=== PATIENT | male | born 1950 | race Caucasian/White ===

== ENCOUNTER → 2024-12-31 12:34 | Outpatient (REF) | payer MEDICARE, OTHER, SELFPAY | LOC: RAD 12:34 | PROVIDERS: ATTENDING PHYSICIAN Family Medicine | DX: R60.0 Localized edema (principal) | CPT/HCPCS: 93922; 93925 ==

== ENCOUNTER 2025-01-21 17:57 | Inpatient (IN) | payer MEDICARE, OTHER, SELFPAY ==
[2025-01-21] VITALS (31 sets, daily range): BP systolic 100–148; BP diastolic 53–89; BMI 26.3
--- NOTE | 2025-01-21 09:24 | W.SUR.PREOP ---
Pre-Operative Surgical Note
-
I have examined this patient prior to the performance of the scheduled procedure.
The patient's condition is unchanged from the time of the current History and
Physical and the patient is able to undergo the scheduled procedure.
[2025-01-21 09:54] LABS: Glucose - Point of Care 116 mg/dl (70-99)
[2025-01-21 10:07] LABS: Hematocrit 28.9 % (39.0-52.0); Hemoglobin 9.2 g/dL (13.0-18.0); Mean Corp Hgb Conc. 31.8 g/dL (33.0-37.0); Mean Corpuscular Volume 98.0 fL (80.0-94.0); Red Cell Dist. Width 14.7 % (11.5-14.5)
[2025-01-21 10:16] LABS: INR 1.12; PT 14.5 Sec (11.4-14.6)
[2025-01-21 10:17] LABS: APTT 24.5 Sec (23.4-35.0)
[2025-01-21 10:19] LABS: Blood Urea Nitrogen 25 mg/dl (9-20); Calcium 8.7 mg/dl (8.4-10.2); Carbon Dioxide 25 mmol/L (22-30); Chloride 103 mmol/L (98-107); Estimated Creatinine Clearance 49 ml/min; Glucose 116 mg/dl (70-99); Potassium 4.7 mmol/L (3.5-5.1); Sodium 135 mmol/L (135-145); eGFR > 60.00
[2025-01-21 10:42] LABS: Platelet Count 144 10^3/uL (130-400)
[2025-01-21 12:56] LABS: ACT-LR - POC 282 Seconds (116-155)
--- NOTE | 2025-01-21 14:06 | OR.RPT ---
Operative Report
Operative Report
Date of Operation: 01/21/2025
Pre Op Diagnosis:
1. Limb threatening ischemia, right lower extremity
2. [place] artery atherosclerosis with nonhealing toe ulcerations on the hallux and 2nd toe
3. Diabetes with peripheral arterial occlusive disease
4. Hammer toe, 2nd digit right foot
Post Op Diagnosis:
1. Limb threatening ischemia, right lower extremity
2. [place] artery atherosclerosis with nonhealing toe ulcerations
3. Diabetes with peripheral arterial occlusive disease
4. Hammer toe, 2nd digit right foot
Procedure:
1. Intravascular lithotripsy to right posterior tibial artery (2.5 mm x 80 mm E8)
2. Balloon angioplasty to right posterior tibial artery (3 mm x 220 mm)
3. Balloon angioplasty to right dorsalis pedis artery (1.5 mm and 2 mm angioplasty balloons)
4. Intravascular lithotripsy to right popliteal artery (6 mm x 80 mm E8)
5. Drug-coated balloon angioplasty to right popliteal artery (6 mm x 100 mm Lutonix)
6. Balloon angioplasty and stenting of right popliteal artery (6 mm x 120 mm LifeStent)
7. Diagnostic aortobiiliac arteriogram
8. Diagnostic right lower extremity arteriogram
9. Ultrasound-guided percutaneous access to the left common femoral artery
Surgeon: John Yo III, MD
Production Team Manager: Angely Ling MD PGY-4
Anesthesia: Sedation with local
Fluoroscopy:
64.4 min
179 mGy
42.24 gy.cm2
Complications: None
Estimated Blood Loss: Less than 20 cc
History and Indications for Procedure: 74-year-old male with limb threatening ischemia of his right lower extremity manifested by nonhealing toe wounds.
Procedure in Detail: Bryan Ortega was correctly identified and placed supine on the operating table. After adequate induction of anesthesia the bilateral groins were prepped and draped in the usual sterile fashion. A timeout was performed with
the nursing and anesthesia staff confirming the patient's identity as well as the nature and laterality of the procedure.
The left common femoral artery was identified under ultrasound guidance. The artery was patent but peripherally calcified. The superior and inferior aspects of the femoral head were identified with radiographic guidance and marked at the skin level.
The proposed puncture site was infiltrated with local anesthesia. Under ultrasound guidance we accessed the left common femoral artery with a micropuncture needle and upsized to a 5 Fr sheath over a [employer] wire. The wire and a Shepherds hook flush
catheter were advanced into the distal abdominal aorta and a diagnostic aorto-biiliac arteriogram was performed:
AORTO-ILIAC ARTERIOGRAM:
Aorta: Peripherally calcified. Patent with no significant stenosis identified
Right common iliac artery: Patent with no significant stenosis identified
Right external iliac artery: Patent with no significant stenosis identified
Left common iliac artery: Patent with no significant stenosis identified
Left external iliac artery: Patent with no significant stenosis identified
Under roadmap guidance using a Glidewire and the Shepherds hook catheter we selected the right common iliac artery followed by the external iliac artery and then the common femoral artery. A catheter was tracked up and over the aortic bifurcation
and placed in the common femoral artery. A diagnostic right lower extremity arteriogram was then performed which demonstrated the following:
RIGHT LOWER EXTREMITY:
Common femoral artery: Patent with no significant stenosis identified
[place] femoral artery: Patent with no significant stenosis identified
Superficial femoral artery: Scattered calcification throughout. Focal calcified plaque in the mid SFA contributing to a nonsignificant stenosis
Popliteal artery: Heavily calcified plaque behind the knee. Patent. Moderate to high-grade stenosis behind the knee. Patent below the knee with no significant stenosis identified
Anterior tibial artery: Patent. Scattered stents identified throughout the proximal and mid anterior tibial artery. Smaller diameter distally. Dorsalis pedis artery appears to be occluded with no clear distal reconstitution.
Tibioperoneal trunk: Patent
Peroneal artery: Patent. Dominant tibial artery. Well-developed posterior branch at the ankle reconstitutes the distal posterior tibial artery
Posterior tibial artery: Patent but small diameter and heavily diseased throughout especially in the distal aspect. Distal posterior tibial artery at the ankle is reconstituted via the peroneal artery. Plantar branches are patent and supply the
toes.
ENDOVASCULAR INTERVENTION: Systemic heparin was administered. Exchanged out for a 6 Fr 45 cm sheath over a Storq wire. Selected the superficial femoral artery and popliteal artery under roadmap guidance with a Quickcross and Glidewire. The
calcified plaque in the popliteal artery was crossed. I then selected the posterior tibial artery with the Glidewire and Quickcross catheter. I exchanged out for a 0.[address] wire and advanced this into the distal posterior tibial artery at
the calcaneus. The posterior tibial artery was predilated with a 2 mm angioplasty balloon. Due to the heavily calcified nature of the posterior tibial artery disease and in an effort to modify the calcium to achieve maximum luminal gain with
endovascular intervention I elected to proceed with intravascular lithotripsy. A 2.5 mm x 80 mm Shockwave balloon was advanced to the distal posterior tibial artery under roadmap guidance. Alternating rounds of lithotripsy pulse delivery at
sub-nominal pressure and angioplasty at nominal pressure was performed across the stenosis. In between rounds of pulse delivery and angioplasty the balloon was deflated and repositioned under roadmap guidance. All 400 pulses were delivered. The
entire length of posterior tibial artery stenosis was treated. I then followed this with a long 3 mm x 220 mm angioplasty balloon. The entire length of the posterior tibial artery was treated with this balloon. 2 inflations were required. Each
inflation was held in place at nominal pressure for 3 minutes. Subsequent arteriogram demonstrated an excellent technical result with a widely patent posterior tibial artery and brisk flow distally wtih brisk filling of the plantar branches and
flow to the toes. Significant improvement compared to pretreatment.
We then focused our attention on the anterior tibial artery. We made an attempt to recanalize the occluded dorsalis pedis artery. Under roadmap guidance I selected the anterior tibial artery with the Glidewire and Quickcross catheter. We then
exchanged out for a 0.014 platform. Using a Quickcross and Glidewire advantage we navigated through the remainder of the anterior tibial artery. I was able to cross the occluded dorsalis pedis segment with the Glidewire advantage and advanced the
wire into a digital branch in the right foot. I attempted to cross the occluded segment with several different balloons including a 1.5 mm x 40 mm and a 2 mm x 60 mm. I was only able to traverse a portion of the occluded segment but could not
completely cross the entire length of the occluded DP. Balloon angioplasty was performed on the proximal occluded segment with as much balloon purchase as we could achieve with eaach of these balloons. This was done with both the 1.5 mm and the 2
mm angioplasty balloons. Following balloon angioplasty we made another attempt to cross but were unsuccessful. I then used a rapid exchange 1.5 mm x 15 mm coronary balloon in an attempt to cross the remaining occluded DP segment but had the same
result with inability to cross the occluded DP entirely. I then abandoned additional attempts to open this target artery.
I then focused my attention on the calcified popliteal artery stenosis. The 0.014 wire was pulled back into the below-knee popliteal artery. Due to the heavily calcified nature of the popliteal artery disease and in an effort to modify the calcium
to achieve maximum luminal gain with endovascular intervention I elected to proceed with intravascular lithotripsy. A 6 mm x 80 mm Shockwave balloon was placed across the popliteal artery stenosis under roadmap guidance. Alternating rounds of
lithotripsy pulse delivery at sub-nominal pressure and angioplasty at nominal pressure was performed across the stenosis. In between rounds of pulse delivery and angioplasty the balloon was deflated and repositioned under roadmap guidance. All 400
pulses were delivered. Subsequent arteriogram demonstrated an improved but suboptimal result. I then treated the popliteal artery with a 6 mm x 100 mm Lutonix drug-coated angioplasty balloon. The balloon was positioned in the popliteal artery
behind the knee, inflated to nominal pressure and held in place for 3 minutes. Subsequent arteriogram demonstrated recoil in the area of densely calcified plaque behind the knee. I therefore stented the popliteal artery with a 6 mm x 120 mm
LifeStent. The stent was positioned in the desired location under roadmap guidance and deployed successfully. The stent was then profiled with a 6 mm angioplasty balloon. Subsequent arteriogram demonstrated an excellent technical result with a
widely patent popliteal artery brisk flow and minimal residual stenosis behind the knee.
Satisfied with this result we concluded the procedure. The sheath tip was pulled back into the left external iliac artery. Protamine was administered. The sheath was secured in place with a plan to pull it in the recovery area.
The patient tolerated the procedure well and was taken to the recovery area in stable condition. At the conclusion of the case the patient had a palpable posterior tibial artery pulse at the ankle and a palpable proximal dorsalis pedis artery pulse
on the top of the right foot.
Attestation: I was present and responsible for the entire procedure.
Signed:
John Yo III, MD
Vascular Surgery
[facility]
--- NOTE | 2025-01-21 14:35 | PTCARENOTE ---
received pt from vascular lab approx [id number]. pt in and out of a fib. notified dr yajaira pacheco anesthesia who came to bedside to evaluate pt . states this is common after anesthesia and will be monitored on floor w a cardiology consult as well.
estelle also aware. No treatment at this time
[2025-01-21] MEDS: PLAVIX 300 MG PO (15:05)
[2025-01-21 15:27] LABS: Glucose - Point of Care 96 mg/dl (70-99)
--- NOTE | 2025-01-21 15:43 | W.PN.UPDATE ---
Update Note
Progress Note Update
Patient with late evening discharge roughly 8 PM, chronic ongoing nonhealing wound of right lower extremity that has not been x-rayed or seen by podiatry, and while recovering in Referral And Information Aide recovery patient was noted to be in atrial fibrillation which
is a new diagnosis for him. For all of the above reasons decision was made to admit patient overnight for podiatry consultation, cardiology consultation and atrial fibrillation workup, and with obtain foot x-ray to rule out osteomyelitis of right
lower extremity. Patient and son are agreeable to plan. Patient with atrial fibrillation on bedside monitor, heart rate controlled in the low 100s, asymptomatic. He denies lightheadedness, chest palpitations, chest tightness/pain, or shortness of
breath. Left groin puncture site clean, dry, and intact, with no evidence of hematoma. Dr. John Yo III aware and agrees with plan.
[2025-01-21] MEDS: NSS 1000 IV (16:26)
[2025-01-21] MEDS: ASPIR LOW (ENTERIC COATED) 81 MG PO (16:32)
[2025-01-21] MEDS: NOVOLOG FLEXPEN-MODERATE RESISTANCE SC (16:33)
--- NOTE | 2025-01-21 16:34 | CON.CAR ---
Addendum entered and electronically signed by Nicole Luque MD 01/21/25 22:52:
I saw and examined the patient.
The Insurance Solicitor's note was reviewed and I agree with the note.
Comment: Patient was seen in cath recovery area around 5PM. 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
angiogram, GAS FITTER and stent to PT, angioplasty to AT and DP on 01/21/[address] Yo with new onset AF with RVR post operatively. Very poor historian. Cannot recall his last cardiology group or visit. No recent CP or SOB. No palpitations,
LH/dizziness. No orthiopnea/PND. Drinks one shot of whiskey 5 days a week. Lives at [facility]. Cards previosuy seen at [facility] and [place]. Son is urologist at [employer], who I spoke to at length this evening over the phone.
On exam, pt is A+o x 2, Irregularly irregular rhythm, Normal S1 and S2, no m/r/g, Abd soft, NT, ND +BS, warm ext, left groin access site without hematoma or bruit.
Vitals and labs reviewed, anemia noted. Creat 1.2.
Reccs:
1. Monitor on tele, add low dose Toprol XL for HR control.
2. Check echocardiogram in AM to assess BiV fxn and rule out valvular issues.
3. Son will try to clarify who most recent daycare worker so we can try to get records but son would also like to establish cards at .
4. [id number] score at least 5 warranting lifelong AC. No bleeding complications noted however frequent falls per son. Thankfully no injuries. We discussed several options given son is very concerned about termination clerk full AC given his balance issues
and falls. We can either leave DAPT on and send out on 2-4wk monitor to reassess as he recovers as outpt accepting risk for stroke vs. start eliquis tomorrow AM as long as no issues at groin site overnight, and still consider sending out with 2-4wk
monitor to assess if paroxysmal or persistent and also assess if pt able to tolerate AC while watching Hgb closely. He does not qualify for low dose eliquis. In shared decision making, son prefers sending home on eliquis and close follow up and
monitring of rhythm. D/w Dr. Yo who would be okay with eliquis tomorrow with plan to then discharge home on Plavix and eliquis without aspirin.
5. Check TFTs, eucated regarding complete alcohol abstinence.
Nicole Luque MD, [facility], [facility]
[id number]
Original Note:
Consultation
Consultation Request
Date/Time Consultation Requested: 01/21/2025
Date/Time Consultation Performed: 01/21/2025
Requesting Provider: Dr. Yo
Performing Provider: Dr. Luque
Reason for Consultation: Possible paroxysmal A-fib
Medical History
-
History of Present Illness:
Patient came to the hospital today for planned peripheral vascular procedure and cardiology is now asked to see postprocedure for newly diagnosed paroxysmal atrial fibrillation. 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
[employer] system up in [place]. Patient is currently living at [facility] for rehab and follows with vascular surgery as an outpatient, he was seen in their office on 01/16/2025 with concern for limb threatening ischemia with
concurrent nonhealing RLE wounds and possible cellulitis prompting initiation of Bactrim for cellulitis and the plans for peripheral angiogram that were performed today. Patient had peripheral angiogram and then RLE vascular interventions as
outlined above. While recovering in the Certified Registered Nurse Practitioner holding area the patient was noted to have the new onset of atrial fibrillation, patient denies a history of atrial fibrillation. Patient is not chronically anticoagulated. There is a history of
traumatic brain injury and a history of falls, but he is currently living at [facility]. Patient has a history of coronary disease with CABG back in 2005.
PMH:
PAD s/p RLE angiogram and GAS FITTER and stent to the PT and angioplasty to the AT and DP 01/21/2025
PAD with nonhealing toe ulcerations on the right hallux and right second toe
CAD s/p at [facility] in 2005
DM2
Possible CKD
h/o TBI
Hyperlipidemia
Hypertension
DENNY
Past Medical History
Past Medical History: Other (In HPI)
Past Surgical History: Cardiac (CABG at [facility] in 2005) and Other (Toe amputation)
Social History
Tobacco: Former Smoker (Smoked from age 16 until age 47)
Alcohol: Daily (None currently, but prior to admission at his rehab facility he says he would take a shot a day)
Drug: None
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
Family History
Family History: Other (His mother with a PE and his father with colon cancer)
Allergies / Home Medications
Allergy/AdvReac Type Severity Reaction Status Date / Time
duloxetine Allergy Unknown Unknown Verified 01/21/25 09:59
metformin Allergy Unknown Unknown Verified 01/21/25 10:00
ofloxacin Allergy Unknown Unknown Verified 01/21/25 10:00
Quinolones Allergy Unknown Unknown Verified 01/21/25 10:00
�Medication �Instructions �Recorded �Confirmed �Type
acetaminophen 325 mg tablet 650 mg PO Q4H PRN pain,fever 01/17/25 01/17/25 History
albuterol sulfate 2.5 mg/3 mL 2.5 mg inhalation Q6H PRN SOB 01/17/25 01/21/25 History
(0.083 %) solution for nebulization
aripiprazole 5 mg tablet (Abilify) 5 mg PO HS 01/17/25 01/21/25 History
bisacodyl 10 mg rectal suppository 10 mg NE DAILY PRN constipation 01/17/25 01/17/25 History
bupropion HCl 150 mg 24 hr tablet, 150 mg PO DAILY 01/17/25 01/21/25 History
extended release
divalproex 500 mg tablet,delayed 750 mg PO BID 01/17/25 01/21/25 History
release
ezetimibe 10 mg tablet 10 mg PO DAILY 01/17/25 01/21/25 History
famotidine 20 mg tablet 20 mg PO BID 01/17/25 01/21/25 History
finasteride 5 mg tablet 5 mg PO DAILY 01/17/25 01/21/25 History
fluoxetine 40 mg capsule 80 mg PO DAILY 01/17/25 01/21/25 History
folic acid 1 mg tablet 1 mg PO DAILY 01/17/25 01/21/25 History
glucagon 1 mg/0.2 mL subcutaneous 1 mg SC ONCE PRN hypoglycemia 01/17/25 01/17/25 History
auto-injector
insulin aspart U-100 100 unit/mL 1 sliding scale dose SC DIRECTED 01/17/25 01/21/25 History
subcutaneous solution (Novolog
U-100 Insulin aspart)
insulin glargine 100 unit/mL 18 unit SC HS 01/17/25 01/21/25 History
subcutaneous solution
magnesium hydroxide 400 mg/5 mL 30 ml PO DAILY PRN constipation 01/17/25 01/17/25 History
oral suspension (Milk of Magnesia)
melatonin 5 mg tablet 5 mg PO HS PRN insomnia 01/17/25 01/21/25 History
metoprolol succinate 25 mg 12.5 mg PO DAILY 01/17/25 01/21/25 History
tablet,extended release 24 hr
mirtazapine 30 mg tablet (Remeron) 30 mg PO HS 01/17/25 01/21/25 History
montelukast 10 mg tablet 10 mg PO DAILY 01/17/25 01/21/25 History
nitroglycerin 0.4 mg sublingual 0.4 mg sublingual Q5M PRN CP 01/17/25 01/17/25 History
tablet
pyridoxine (vitamin B6) 100 mg 100 mg PO DAILY 01/17/25 01/21/25 History
tablet
ranolazine 500 mg tablet,extended 500 mg PO Q12H 01/17/25 01/21/25 History
release,12 hr
sennosides 8.6 mg tablet (senna) 8.6 mg PO HS 01/17/25 01/17/25 History
sodium phosphates 19 gram-7 1 ml NE DAILY PRN constipation 01/17/25 01/17/25 History
gram/118 mL enema (Fleet Enema)
sulfamethoxazole 800 1 tab PO Q12H 01/17/25 01/21/25 History
mg-trimethoprim 160 mg tablet
(Bactrim DS)
tamsulosin 0.4 mg capsule 0.4 mg PO HS 01/17/25 01/21/25 History
aspirin 81 mg tablet,delayed 81 mg PO DAILY 01/21/25 01/21/25 History
release
Review of Systems
-
History Source: Patient
All other systems: Negative unless noted
Physical Exam
Vital Signs
Temp Pulse Resp BP Pulse Ox
97.6 F 109 18 118/70 97
01/21/25 09:15 01/21/25 15:00 01/21/25 15:00 01/21/25 14:50 01/21/25 15:55
GEN: NAD, AAO x 3
HEENT: EOMI, MMM
LUNGS: RA. Clear anterolaterally without wheeze
CV: A-fib on telemetry. Irreg
ABD: ND
EXT: +1 B/L LE edema
NEURO: Gross non-focal
SKIN: No rash
Lab Results
01/21/25 09:42
01/21/25 09:42
Impression / Plan
-
PCP: Dr. Ricardo Camarillo
Cardiology: [facility], name unknown
Vascular Surgeon: Dr. Yo
Impression:
Admitted with newly diagnosed A-fib following peripheral vascular procedure 01/21/2025
Newly diagnosed paroxysmal atrial fibrillation
PAD s/p RLE angiogram and GAS FITTER and stent to the PT and angioplasty to the AT and DP 01/21/2025
PAD with nonhealing toe ulcerations on the right hallux and right second toe
CAD s/p at [facility] in 2005
DM2
Possible CKD
h/o TBI
Hyperlipidemia
Hypertension
DENNY
Plan:
-Patient came to the hospital today for planned peripheral vascular procedure and cardiology is now asked to see postprocedure for newly diagnosed paroxysmal atrial fibrillation. 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
[facility] up in [place]. Patient is currently living at [facility] for rehab and follows with vascular surgery as an outpatient, he was seen in their office on 01/16/2025 with concern for limb threatening ischemia with
concurrent nonhealing RLE wounds and possible cellulitis prompting initiation of Bactrim for cellulitis and the plans for peripheral angiogram that were performed today. Patient had peripheral angiogram and then RLE vascular interventions as
outlined above. While recovering in the Certified Registered Nurse Practitioner holding area the patient was noted to have the new onset of atrial fibrillation, patient denies a history of atrial fibrillation. Patient is not chronically anticoagulated. There is a history of
traumatic brain injury and a history of falls, but he is currently living at [facility]. Patient has a history of coronary disease with CABG back in 2005.
-ECG from 0919 this morning shows sinus bradycardia, telemetry currently shows atrial fibrillation with RVR, heart rate 110 bpm.
-Patient with newly diagnosed A-fib, will start Lopressor 12.5 mg every 6 hours
-A-fib is symptomatic patient denies palpitations chest pain or SOB.
-Patient has already been ordered aspirin and Plavix for his peripheral intervention earlier today, pending groin access site we can start Eliquis in the morning and with plan on Eliquis and Plavix. Aspirin can be discontinued once Eliquis was
started.
-Check echo
-We will call the patient's son tomorrow to find out the name of the primary daycare worker of the week and call their office to try and obtain records
-Patient is not chronically on a statin despite his history of CABG by his choice.
[2025-01-21] MEDS: BACTRIM DS 800 MG/160 MG 1 TABLET PO (16:41)
[2025-01-21] MEDS: RANEXA EXTENDED RELEASE 500 MG PO (16:41)
[2025-01-21] MEDS: NSS 500 IV (18:20)
[2025-01-21] MEDS: DEPAKOTE (12 HR RELEASE) 750 MG PO (19:59)
[2025-01-21] MEDS: HEPARIN SC (20:13)
[2025-01-21 21:10] LABS: Glucose - Point of Care 406 mg/dl (70-99)
[2025-01-21 21:45] LABS: Glucose 349 mg/dl (70-99)
[2025-01-21] MEDS: SENOKOT 8.6 MG PO (22:02)
[2025-01-21] MEDS: REMERON 30 MG PO (22:02)
[2025-01-21] MEDS: ABILIFY 5 MG PO (22:02)
[2025-01-21] MEDS: FLOMAX 0.4 MG PO (22:02)
[2025-01-21] MEDS: LANTUS 0.14 UNITS SC (22:02)
[2025-01-21] MEDS: MELATONIN 5 MG PO (23:21)
[2025-01-21] MEDS: NOVOLOG FLEXPEN 6 UNITS SC (23:23)
[2025-01-22] VITALS (7 sets, daily range): BP systolic 101–175; BP diastolic 44–64
[2025-01-22 01:32] LABS: Glucose - Point of Care 228 mg/dl (70-99)
[2025-01-22 07:36] LABS: Glucose - Point of Care 156 mg/dl (70-99)
--- NOTE | 2025-01-22 07:38 | W.PN.VS ---
Addendum entered and electronically signed by John Yo III, MD 01/22/25 11:30:
This patient was seen and examined in collaboration with OMKAR Abreu. I agree with the history and physical exam as well as the assessment and plan. I have the following additions:
Successful complex multilevel endovascular intervention for limb threatening ischemia
Robust Doppler signals in the right foot
Patient was admitted for new onset atrial fibrillation postop
He has now converted back to sinus rhythm but is somewhat bradycardic
Planning for cardiology follow-up today
Podiatry consult
Xrays of right foot and possible MRI
Local wound care
Signed:
John Yo III, MD
Vascular Surgery
[facility]
Original Note:
Today's Communication / Plan
-
Seen and assessed with Dr. Yo
Assessment/Plan
-
Postop day 1
1. Intravascular lithotripsy to right posterior tibial artery (2.5 mm x 80 mm E8)
2. Balloon angioplasty to right posterior tibial artery (3 mm x 220 mm)
3. Balloon angioplasty to right dorsalis pedis artery (1.5 mm and 2 mm angioplasty balloons)
4. Intravascular lithotripsy to right popliteal artery (6 mm x 80 mm E8)
5. Drug-coated balloon angioplasty to right popliteal artery (6 mm x 100 mm Lutonix)
6. Balloon angioplasty and stenting of right popliteal artery (6 mm x 120 mm LifeStent)
7. Diagnostic aortobiiliac arteriogram
8. Diagnostic right lower extremity arteriogram
9. Ultrasound-guided percutaneous access to the left common femoral artery
Plan:
Consult podiatry
Foot x-ray today
Cardiology follow-up regarding anticoagulation/antihypertensives
If patient discharges on anticoagulation medication can DC aspirin and continue Plavix
Subjective Data
-
Date of Service: January 22, 2025
Patient seen at bedside this a.m. with Dr. Yo. Patient offers at this time. No events overnight. Excellent Doppler signals this morning
Objective Data
-
Vital Signs
Temp Pulse Resp BP Pulse Ox
97.9 F 47 16 123/52 100
01/22/25 06:46 01/22/25 06:46 01/22/25 06:46 01/22/25 06:46 01/22/25 06:46
Intake and Output
01/21/25 01/22/25 01/23/25
06:59 06:59 06:59
Intake Total 1410 / 1410
Output Total 1250 / 1250
Balance 160 / 160
Intake:
Oral fluids 660 / 660
IV fluids (Total) 750 / 750
Output:
Urine, Voided 1250 / 1250
Other:
Number of approximated SMALL 1
amounts of urine
Number of approximated MODERATE 1
amounts of urine
Number of approximated LARGE 1
amounts of urine
Lab Results
01/21/25 09:42
01/21/25 21:22
Calcium 8.7 mg/dl (8.4-10.2) 01/21/25 09:42
Physical Exam
-
AAO x 3
No tachypnea on room air
No tachycardia
Abdomen soft
Groin site clean, dry, intact, soft, flat
Right foot warm and pink, + Doppler signals
Left foot cool, + Doppler signals
--- NOTE | 2025-01-22 07:45 | PTCARENOTE ---
0600 neurovascular check different from established baseline-See Neurovascular check intervention. Pt c/o pain on right leg w/ increased erythema & edema. MEDICAL INSURANCE CLAIMS SPECIALIST, On-Call vascular physician along with Vascular surgeon & pharmacy clinical coordinator.
Throughout night-pt in afib w/ SR & PACs-See Nursing Shift Assx. Around 0300, patient HR began to decline-began to sustain Sinus Bradycardia at 0530.
0630-ECG obtained per protocol-Sinus Bradycardia[45]. Patient remains asymptomatic, VSS. Vascular Surgeon & pharmacy clinical coordinator notified alongside dayshift RN. No new orders at this time.
[2025-01-22] MEDS: PROZAC 80 MG PO (08:09)
[2025-01-22] MEDS: BACTRIM DS 800 MG/160 MG 1 TABLET PO ×2 (08:10→20:22)
[2025-01-22] MEDS: PLAVIX 75 MG PO (08:10)
[2025-01-22] MEDS: PEPCID 20 MG PO (08:10)
[2025-01-22] MEDS: WELLBUTRIN XL (24 hour extended release) 150 MG PO (08:10)
[2025-01-22] MEDS: FOLVITE 1 MG PO (08:10)
[2025-01-22] MEDS: SINGULAIR 10 MG PO (08:10)
[2025-01-22] MEDS: DEPAKOTE (12 HR RELEASE) 750 MG PO ×2 (08:10→20:21)
[2025-01-22] MEDS: VITAMIN B-6 100 MG PO (08:10)
[2025-01-22] MEDS: TOPROL XL 12.5 MG PO (08:10)
[2025-01-22] MEDS: RANEXA EXTENDED RELEASE 500 MG PO ×2 (08:11→20:22)
[2025-01-22] MEDS: ASPIR LOW (ENTERIC COATED) 81 MG PO (08:11)
[2025-01-22] MEDS: ZETIA 10 MG PO (08:11)
[2025-01-22] MEDS: HEPARIN 5000 UNITS SC (08:11)
[2025-01-22] MEDS: PROSCAR 5 MG PO (08:11)
[2025-01-22] MEDS: NOVOLOG FLEXPEN-MODERATE RESISTANCE 1 UNITS SC ×2 (08:12→17:20)
--- NOTE | 2025-01-22 08:33 | W.PN.CARDCBS ---
Addendum entered and electronically signed by Bandar Evangelista MD 01/22/25 12:16:
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
PMH: Longstanding PAD, CAD/CABG 2005, diabetes, CKD, traumatic brain injury, hypertension, hyperlipidemia, obstructive sleep apnea
Current medications: Clopidogrel 75 mg a day, Abilify 5 mg at bedtime, bupropion, Depakote, ezetimibe 10 mg a day, famotidine 20 mg daily, Proscar 5 mg a day, Prozac, folic acid, metoprolol succinate 12.5 daily, Remeron, Singulair, B6, Senokot,
tamsulosin, ranolazine 500 every 12, Bactrim, Lantus
101/44, pulse 46, respiratory rate 16, afebrile, head and neck exam unremarkable, lungs are clear, bradycardic regular rhythm, occasional extrasystoles, not much edema distal pulses diminished abdomen benign, no distress
currently in echo normal LV function, dilated atria, mild valvular heart disease on preliminary
ECG yesterday: Sinus rhythm, right bundle branch block, left anterior fascicular block, prolonged QT with U waves
ECG this morning sinus bradycardia right bundle, left anterior fascicular block, nonspecific ST and T changes
ECG in PACU possible sinus tachycardia, cannot exclude atrial tachycardia or atrial flutter 2-1, AV rojelio reentry seems less likely
Hemoglobin was 9.2, BUN and creatinine were 25 and 1.2
Impression:
Paroxysmal atrial tachycardia
Peripheral arterial disease status post right lower extremity PARKING INSPECTOR/stent
CAD, history of CABG
Diabetes
History of traumatic brain injury
Hypertension
Hyperlipidemia
Obstructive sleep apnea
Plan:
I have reviewed his telemetry carefully, to my eye there has been no atrial fibrillation, but periods of atrial tachycardia or possibly junctional tachycardia, with visible P waves throughout. Based on this, the diagnosis of paroxysmal atrial
fibrillation is uncertain in my opinion.
He is a fall risk and there is some ambivalence about anticoagulation. Furthermore, his atrial arrhythmia is in the setting of a procedure, which may mean the likelihood of recurrence over years is somewhat reduced.
At this time, would not recommend Eliquis, in the setting of her recent procedure presumably DAPT is the appropriate therapy.
We have no objection to discharge at this time on DAPT. We will arrange for an outpatient monitor and outpatient cardiac follow-up.
We will contact his son who is a neurologist and inform him of the above.
Original Note:
Today's Communication / Plan
-
Start Eliquis 5 mg BID now
Stop aspirin
Continue Plavix
Continue Toprol XL 12.5 mg daily
Echo to be performed today prior to discharge
2-week outpatient CAM monitor to be applied today prior to discharge
Cardiology follow-up being arranged with Dr. Bazan at the request of the patient's son who is a urologist at [facility]
Update at 1036: TT communication from vascular surgery KATY, there is evidence of osteomyelitis on patient's x-ray. Eliquis had already been ordered by this provider, but dose not given yet an order was stopped, orders placed by me. Patient is
going to be evaluated by the associate account director and surgery is likely. Patient was in SR on telemetry 01/22/2025 and would recommend ongoing telemetry monitoring. If patient has recurrent atrial arrhythmia then would start heparin gtt.
Impression / Plan
-
PCP: Dr. Ricardo Camarillo
Cardiology: Cardiology care previously obtained in the [facility] and [place] areas, primary warp dresser unknown, the patient requesting to follow-up with Dr. Mann or Héctor Bazan
Vascular Surgeon: Dr. Yo
Impression:
Admitted with newly diagnosed A-fib following peripheral vascular procedure 01/21/2025
Newly diagnosed paroxysmal atrial fibrillation 01/21/2025
PAD s/p RLE angiogram and PARKING INSPECTOR and stent to the PT and angioplasty to the AT and DP 01/21/2025
PAD with nonhealing toe ulcerations on the right hallux and right second toe
CAD s/p CABG at [facility] in 2005
DM2
Possible CKD
h/o TBI
Hyperlipidemia
Hypertension
DENNY
Echo 01/22/2025: Study pending
Plan:
-Patient had elective outpatient peripheral vascular procedure on 01/21/2025 and while in recovery had newly diagnosed A-fib prompting cardiology consultation and overnight admission.
-Telemetry reviewed by me 01/22/2025 and patient spontaneously converted to SR in the rehabilitator. Patient denies any symptomatic difference and it appears he is asymptomatic with A-fib.
-Cardiology attending talked with the patient's son by phone on the night of 01/21/2025. Patient's son is a urologist with the [facility]. Patient's case was reviewed and patient's son is agreeable to a plan of initiation of Eliquis
starting on 01/22/2025 AM plus checking a 2-week monitor as an outpatient to assess burden of A-fib.
-Start Eliquis 5 mg BID (age 74, wt 75 kg) now, orders placed by me
-Check 2-week CAM monitor, order placed by me through [facility] and will have monitor applied prior to discharge, arrangements made for ambulatory personnel monitor to come from the cardiology office to apply monitor prior to discharge, arrangements made
by me 01/22/2025
-Outpatient dose of Toprol XL 12.5 mg daily has been continued
-Patient had peripheral vascular procedure on 01/21/2025 and was started on Plavix in addition to his outpatient dose of aspirin at that time. Case reviewed with vascular surgery on the morning of 01/22/2025 and plan is to discontinue aspirin, but
continue Plavix plus the addition of Eliquis as noted above. All orders adjusted by me.
-Check echo, order placed by me
-Patient is not chronically on a statin despite his history of CABG by his choice.
Update at 1036: TT communication from vascular surgery KATY, there is evidence of osteomyelitis on patient's x-ray. Eliquis had already been ordered by this provider, but dose not given yet an order was stopped, orders placed by me. Patient is
going to be evaluated by the associate account director and surgery is likely. Patient was in SR on telemetry 01/22/2025 and would recommend ongoing telemetry monitoring. If patient has recurrent atrial arrhythmia then would start heparin gtt.
HPI: Patient came to the hospital today for planned peripheral vascular procedure and cardiology is now asked to see postprocedure for newly diagnosed paroxysmal atrial fibrillation. 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
the [facility] up in [place]. Patient is currently living at [facility] for rehab and follows with vascular surgery as an outpatient, he was seen in their office on 01/16/2025 with concern for limb threatening ischemia with
concurrent nonhealing RLE wounds and possible cellulitis prompting initiation of Bactrim for cellulitis and the plans for peripheral angiogram that were performed today. Patient had peripheral angiogram and then RLE vascular interventions as
outlined above. While recovering in the [facility] area the patient was noted to have the new onset of atrial fibrillation, patient denies a history of atrial fibrillation. Patient is not chronically anticoagulated. There is a history of
traumatic brain injury and a history of falls, but he is currently living at [facility]. Patient has a history of coronary disease with CABG back in 2005.
Progress Note - Outside Plant Field Engineer
Subjective
Date of Service: January 22, 2025
Patient feels well, denies palpitations, no symptomatic change with spontaneous taoism of SR very early this morning
Objective
Labs:
01/21/25 09:42
01/21/25 21:22
Labs
Hgb 9.2 g/dL (13.0-18.0) L 01/21/25 09:42
Hct 28.9 % (39.0-52.0) L 01/21/25 09:42
Plt Count 144 10^3/uL (130-400) 01/21/25 09:42
PT 14.5 Sec (11.4-14.6) 01/21/25 09:42
INR 1.12 01/21/25 09:42
APTT 24.5 Sec (23.4-35.0) 01/21/25 09:42
Sodium 135 mmol/L (135-145) 01/21/25 09:42
Potassium 4.7 mmol/L (3.5-5.1) 01/21/25 09:42
BUN 25 mg/dl (9-20) H 01/21/25 09:42
Creatinine 1.2 mg/dL (0.7-1.3) 01/21/25 09:42
Glucose 349 mg/dl (70-99) H 01/21/25 21:22
Vital Signs and I&O:
Vital Signs
Temp Pulse Resp BP Pulse Ox
97.9 F 47 16 123/52 100
01/22/25 06:46 01/22/25 06:46 01/22/25 06:46 01/22/25 06:46 01/22/25 06:46
Vital Signs
Temp Pulse Resp BP Pulse Ox
97.9 F 47 16 123/52 100
01/22/25 06:46 01/22/25 06:46 01/22/25 06:46 01/22/25 06:46 01/22/25 06:46
Intake & Output
01/20/25 01/21/25 01/22/25 01/23/25
06:59 06:59 06:59 06:59
Intake Total 1410 / 1410
Output Total 1250 / 1250
Balance 160 / 160
Physical Exam
Physical Exam
GEN: NAD, AAO x 3
LUNGS: RA. Clear anterolaterally without wheeze
CV: SR on telemetry. Reg
EXT: Left groin is soft and nontender, no evidence of ecchymosis or hematoma. +1 B/L LE edema
NEURO: Gross non-focal
SKIN: No rash
--- NOTE | 2025-01-22 11:32 | CON.MD ---
Consultation - Medical
-
CC/History of Present Illness:
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 for rehab and follows with vascular surgery as an outpatient, he was seen in their office on 01/16/2025 with concern for limb threatening ischemia with concurrent nonhealing
RLE wounds and possible cellulitis prompting initiation of Bactrim for cellulitis.
Podiatry consulted for multiple foot wounds. He is status post RLE aorto-iliac angiography and IVL balloon angio and stenting. He was admitted postprocedure for newly diagnosed paroxysmal atrial fibrillation and is being evaluated by cardiology.
He states that he has struggled on and off with multiple digital wounds over the years secondary to his cavus foot type and hammertoe deformities. He had a right partial 3rd tow amputation for the very reason many years ago.
PMH:
PAD s/p RLE angiogram and COMMISSIONS MANAGER and stent to the PT and angioplasty to the AT and DP 01/21/2025
PAD with nonhealing toe ulcerations on the right hallux and right second toe
CAD s/p at [facility] in 2005
DM2
Possible CKD
h/o TBI
Hyperlipidemia
Hypertension
DENNY
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
Past Medical History
Cardiac (CABG at [facility] in 2005) and Other (Toe amputation)
Social History
Tobacco: Former Smoker (Smoked from age 16 until age 47)
Alcohol: Daily (None currently, but prior to admission at his rehab facility he says he would take a shot a day)
Drug: None
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
Family History
His mother with a PE and his father with colon cancer
Allergies / Home Medications
Allergy/AdvReac Type Severity Reaction Status Date / Time
duloxetine Allergy Unknown Unknown Verified 01/21/25 09:59
metformin Allergy Unknown Unknown Verified 01/21/25 10:00
ofloxacin Allergy Unknown Unknown Verified 01/21/25 10:00
Quinolones Allergy Unknown Unknown Verified 01/21/25 10:00
PE: Right LE with audible pulses, foot is warm and perfused. CFT WNL, contracted lesser digits and cavus foot deformity. Healed right partial 3rd toe amputation, The right 2nd digit is contracted at the DIPJ and there is a dry eschar on the
distal tip of the toe. No fluid expressed, no infection. Does not probe to bone. It measures approximately 0.5 cm in diameter, The hallux is also contracted and there is a 0.2 x 0.3cm area of dried hyperkeratosis, it brewer snot probe to bone, there
is no open wound. The toe appears stable and non infected. Left foot with some digital abrasions/stable eschars, no wounds or areas of ischemia or infection.
MRI: Suspect osteomyelitis involving the tuft of the first distal phalanx.
Artifact versus diminished attenuation at the second, third, and fourth metatarsophalangeal joints without joint space narrowing. Possibly related to technical factors. Osseous demineralization may be seen with inflammatory arthropathy, or related
to osteomyelitis and/or septic arthritis.
Assessment/Plan:
Right 2nd toe eschar - unstageable
Right hallux stable hyperkeratosis
Chronic hammertoe deformities
Pes Cavus
Type 2 Diabetes Mellitus
PAD
Neuropathy
We discussed the x-ray findings at length. I believe that the changes on X-ray correlates with his hammertoe deformities and repetitive mechanical pressures/bone remodeling over the years. He declines any sort of debridement of the eschar today.
I am recommending Santyl/DSD and a toe crest to offload the second toe.
I recommend weight bearing as tolerated in a surgical shoe and outpatient follow up. I cautioned him that if the second toe does not heal, he may be at risk for partial vs. Total 2nd toe amputation similar to what he had on the 3rd toe in the past.
--- NOTE | 2025-01-22 12:16 | W.PN.UPDATE ---
Update Note
Progress Note Update
I called the patient's son to review possible osteomyelitis and changes her Eliquis. I left a message with my phone number for him to call me.
Update at 1232: I talked to the patient's son by phone. We reviewed the concern for possible osteomyelitis and the possibility that arrhythmia was more consistent with atrial tachycardia than atrial fibrillation. We made a plan to hold off on
Eliquis at this time, but we will continue with the plan to monitor him as an outpatient for 2 weeks to look for any additional arrhythmia. I also reviewed with the vascular surgery KATY team that Eliquis has been stopped and plan is for 2-week
monitor to be applied prior to discharge. Discharge timing is dependent on MRI. If patient leaves after 4:00 today and we will have to apply the monitor as an outpatient.
[2025-01-22 12:24] LABS: Glucose - Point of Care 229 mg/dl (70-99)
[2025-01-22] MEDS: NOVOLOG FLEXPEN-MODERATE RESISTANCE 3 UNITS SC (12:24)
--- NOTE | 2025-01-22 13:55 | CM ---
Initial assessment completed with patient who is LTC at [facility] for approximately the past year. The building has 5 steps to enter. There is a ramp through HD clinic but is sometimes closed. BILLING REP patient ambulated with a rollator or SPC. He
does not drive. 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 Does not receive any PT/OT. Does have a HC-POA. No VA benefits. Does have a psychiatric history of depression and SI. Has has approximately 5 inpatient psychiatric hospitalizations in the past.
Most recent was approximately 3 years ago[address] PCP is Dr. Edgardo Almeida. Pharmacy is [facility] through [facility]. Discharge POC: Return to [facility] for resumption of LTC. Check if PT recommends SNF at [facility].
--- NOTE | 2025-01-22 14:53 | CON.ID ---
Consultation
-
Date/Time Consultation Requested: January 22, 2025 1036
Date/Time Consultation Performed: January 22, 2025 1455
Requesting Provider: OMKAR Abreu
Performing Provider: Dr. Odilia Neely
Reason for Consultation: Foot osteomyelitis
Chief Complaint / Past History
Chief Complaint
Open wound
History of Present Illness
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
endo-vascularization on January 21. However postop patient noted to have new onset of atrial fibrillation and therefore he was admitted to the hospital. Subsequent foot x-ray shows changes suspicious for osteomyelitis right great toe at the
distal tuft. He was seen by podiatry today who ordered MRI. Vascular recently started the patient on Bactrim January 16 for concern of toe cellulitis. Patient reports there is some improvement of the erythema. No pain. No fevers or chills. He
remains on outpatient Bactrim.
Past History
Additional Past Medical History:
DM2
CAD s/p CABG
Hypertension
Dyslipidemia
Depression
PAD s/p RLE angiogram and TURBINE MECHANIC and stent to the PT and angioplasty to the AT and DP 01/21/2025
Sleep apnea
History of TBI
Hammertoes
R 2nd toe distal tuft amputation
R 3rd Toe partial amputation
Allergy History:
duloxetine Allergy (Verified 01/21/25 18:11)
Unknown
metformin Allergy (Verified 01/21/25 18:11)
Unknown
ofloxacin Allergy (Verified 01/21/25 18:11)
Unknown
Quinolones Allergy (Verified 01/21/25 18:11)
Unknown
Medications Reviewed: Yes
Current Antibiotics:
Bactrim
Social History
Tobacco: Former Smoker
Alcohol: Daily (1 shot per day)
Drug: None
Living: Long Term ([facility])
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
Family History
Family History: Not Pertinent
Review of Systems
Review of Systems
General: Negative Fever, Chills or Change in Appetite
HEENT: Negative Sinus Problems or Headache
Cardiovascular: Negative Chest Pain or Edema
Respiratory: Negative Dyspnea or Cough
Gasteroenterology: Negative Nausea, Vomiting or Diarrhea
Genital / Urological: Negative Dysuria or Flank Pain
Neurological: Negative Dizziness
All systems: All other systems were reviewed and were negative
Vital Signs
Temp Pulse Resp BP Pulse Ox
97.3 F 46 16 125/53 100
01/22/25 11:00 01/22/25 11:00 01/22/25 11:00 01/22/25 11:00 01/22/25 11:00
Physical Exam
Physical Exam
Constitutional: No Acute Distress
Eyes: No Conjunctival Hemorrhage and Sclera Anicteric
Cardiovascular: Regular Rate and S1/S2 (bradycardia)
Pulmonary: Clear
Gastrointestinal: Soft, Non Tender, Non Distended and Normal Bowel Sounds
Genito-Urinary: Negative CVA Tenderness
Extremities: Negative Edema
Wound: Other (Right foot: hallux distal tuft with small shallow wound, dry, mild erythema; 2nd toe hammertoe deformity, tuft with large dry eschar, mild erytehma)
Neurological: AO x 3
Lab / Diagnostic Study Results
01/21/25 09:42
01/21/25 21:22
PT 14.5 Sec (11.4-14.6) 01/21/25 09:42
INR 1.12 01/21/25 09:42
Microbiology Results
01/22/25 R Foot XRAY: Suspect osteomyelitis involving the tuft of the first distal phalanx. Artifact versus diminished attenuation at the second, third, and fourth metatarsophalangeal joints without joint space narrowing. Possibly related to
technical factors. Osseous demineralization may be seen with inflammatory arthropathy, or related to osteomyelitis and/or septic arthritis.
Assessment / Plan
# Possible osteo for R first and 2nd toe ned
# Chronic nonhealing wound R first and 2nd toe ned
# PAD s/p endovascular procedure 01/21
# post-op pAfib, now bradycardic
# DM2
# CAD
- Agree with MRI of foot.
- If MRI + osteo, consider amputation to achieve surgical cure.
- Can hold on starting IV abx at this time.
# Conditions present on admission:
DM2
CAD s/p CABG
Hypertension
Dyslipidemia
Depression
PAD s/p RLE angiogram and TURBINE MECHANIC and stent to the PT and angioplasty to the AT and DP 01/21/2025
Sleep apnea
History of TBI
Hammertoes
R 2nd toe distal tuft amputation
R 3rd Toe partial amputation
[2025-01-22 17:15] LABS: Glucose - Point of Care 175 mg/dl (70-99)
[2025-01-22] MEDS: REMERON 30 MG PO (20:22)
[2025-01-22] MEDS: ABILIFY 5 MG PO (20:22)
[2025-01-22] MEDS: FLOMAX 0.4 MG PO (20:22)
[2025-01-22] MEDS: SENOKOT 8.6 MG PO (20:22)
[2025-01-22 21:31] LABS: Glucose - Point of Care 323 mg/dl (70-99)
[2025-01-22] MEDS: LANTUS 0.18 UNITS SC (22:01)
[2025-01-23 03:36] VITALS: BP 171/56
[2025-01-23 07:00] VITALS: BP 120/51
[2025-01-23 07:54] LABS: Glucose - Point of Care 99 mg/dl (70-99)
[2025-01-23] MEDS: NOVOLOG FLEXPEN-MODERATE RESISTANCE SC ×2 (07:58→12:22)
[2025-01-23 08:55] LABS: Hematocrit 27.0 % (39.0-52.0); Hemoglobin 8.7 g/dL (13.0-18.0); Mean Corp Hgb Conc. 32.2 g/dL (33.0-37.0); Mean Corpuscular Volume 98.2 fL (80.0-94.0); Platelet Count 131 10^3/uL (130-400); Red Cell Dist. Width 15.0 % (11.5-14.5)
[2025-01-23] MEDS: SANTYL OINTMENT 1 APPLIC TOPICAL (08:57)
[2025-01-23] MEDS: SINGULAIR 10 MG PO (08:58)
[2025-01-23] MEDS: PLAVIX 75 MG PO (08:58)
[2025-01-23] MEDS: WELLBUTRIN XL (24 hour extended release) 150 MG PO (08:58)
[2025-01-23] MEDS: FOLVITE 1 MG PO (08:58)
[2025-01-23] MEDS: PROZAC 80 MG PO (08:58)
[2025-01-23] MEDS: PEPCID 20 MG PO (08:58)
[2025-01-23] MEDS: TOPROL XL 12.5 MG PO (08:58)
[2025-01-23] MEDS: BACTRIM DS 800 MG/160 MG 1 TABLET PO ×2 (08:58→21:13)
[2025-01-23] MEDS: DEPAKOTE (12 HR RELEASE) 750 MG PO ×2 (08:58→21:13)
[2025-01-23] MEDS: ZETIA 10 MG PO (08:58)
[2025-01-23] MEDS: RANEXA EXTENDED RELEASE 500 MG PO ×2 (08:58→21:14)
[2025-01-23] MEDS: PROSCAR 5 MG PO (08:59)
[2025-01-23] MEDS: VITAMIN B-6 100 MG PO (08:59)
--- NOTE | 2025-01-23 09:55 | W.PN.VS ---
Addendum entered and electronically signed by Lawson Casas MD 01/23/25 11:00:
Seen and examined with ADOBE BLOCK MAKER. Agree with findings and plan as discussed and noted below. Left groin puncture site flat, no hematoma. Right foot warm with palpable PT pulse at the ankle. Plan/as discussed and noted below.
Original Note:
Today's Communication / Plan
-
Patient seen and examined at bedside with Dr. Lawson Casas M.D., below plan reviewed with attending.
Assessment/Plan
-
Postop day 2
1. Intravascular lithotripsy to right posterior tibial artery (2.5 mm x 80 mm E8)
2. Balloon angioplasty to right posterior tibial artery (3 mm x 220 mm)
3. Balloon angioplasty to right dorsalis pedis artery (1.5 mm and 2 mm angioplasty balloons)
4. Intravascular lithotripsy to right popliteal artery (6 mm x 80 mm E8)
5. Drug-coated balloon angioplasty to right popliteal artery (6 mm x 100 mm Lutonix)
6. Balloon angioplasty and stenting of right popliteal artery (6 mm x 120 mm LifeStent)
7. Diagnostic aortobiiliac arteriogram
8. Diagnostic right lower extremity arteriogram
9. Ultrasound-guided percutaneous access to the left common femoral artery
Plan:
MRI of right foot pending for evaluation of osteomyelitis
Cardiology follow-up regarding anticoagulation/antihypertensives
Infectious disease consulted, appreciate recommendations
Subjective Data
-
Date of Service: January 23, 2025
Patient seen and examined at bedside, offers no complaints. Denies nausea, vomiting, fever, and chills.
Objective Data
-
Vital Signs
Temp Pulse Resp BP Pulse Ox
98.7 F 55 16 120/51 100
01/23/25 07:00 01/23/25 08:58 01/23/25 07:00 01/23/25 08:58 01/23/25 07:00
Intake and Output
01/22/25 01/23/25 01/24/25
06:59 06:59 06:59
Intake Total 1410 / 1410 1800 / 1800
Output Total 1250 / 1250
Balance 160 / 160 1800 / 1800
Intake:
Oral fluids 660 / 660 1800 / 1800
IV fluids (Total) 750 / 750
Output:
Urine, Voided 1250 / 1250
Other:
Number of approximated SMALL 1
amounts of urine
Number of approximated MODERATE 2
amounts of urine
Number of approximated LARGE 1
amounts of urine
Lab Results
01/23/25 07:21
Calcium 8.7 mg/dl (8.4-10.2) 01/21/25 09:42
Physical Exam
-
AAO x 3
No tachypnea on room air
No tachycardia
Abdomen soft
Groin site clean, dry, intact, soft, flat
Right foot warm and pink, + Doppler signals, and palpable PT
[2025-01-23 10:12] LABS: Blood Urea Nitrogen 27 mg/dl (9-20); Calcium 8.6 mg/dl (8.4-10.2); Carbon Dioxide 28 mmol/L (22-30); Chloride 104 mmol/L (98-107); Estimated Creatinine Clearance 45 ml/min; Glucose 99 mg/dl (70-99); Potassium 5.5 mmol/L (3.5-5.1); Sodium 135 mmol/L (135-145); eGFR 56.93
[2025-01-23 11:00] VITALS: BP 167/64
--- NOTE | 2025-01-23 11:41 | W.PN.CARDCBS ---
Addendum entered and electronically signed by Nelson Chau DO 01/24/25 10:30:
.
Please recall if needed
Will arrange for monitor at d/c and follow up
Addendum entered and electronically signed by Nelson Chau DO 01/23/25 17:23:
I saw and examined the patient.
The Asset Protection Officer's note was reviewed and I agree with the note.
Comment:
Plan:
Patient with evidence of osteomyelitis and may require amputation
Patient is compensated for surgery
Patient remains on Plavix for history of peripheral arterial disease and intervention
Remains in sinus rhythm, prior episode of atrial tachycardia
Continue telemetry and consider outpatient monitor
2-week monitor has been ordered at time of discharge
Original Note:
Today's Communication / Plan
-
MRI suggests osteomyelitis
No indication for OAC
Remains on Plavix, aspirin not ordered
Impression / Plan
-
PCP: Dr. Ricardo Camarillo
Cardiology: Cardiology care previously obtained in the [facility] and [facility], primary green prize packer unknown, the patient requesting to follow-up with Dr. Mann or Héctor Bazan
Vascular Surgeon: Dr. Yo
Impression:
Admitted with newly diagnosed A-fib following peripheral vascular procedure 01/21/2025
Newly diagnosed paroxysmal atrial tachycardia 01/21/2025
PAD s/p RLE angiogram and GYNECOLOGIST and stent to the PT and angioplasty to the AT and DP 01/21/2025
PAD with nonhealing toe ulcerations on the right hallux and right second toe
CAD s/p CABG at [facility] in 2005
DM2
Possible CKD
h/o TBI
Hyperlipidemia
Hypertension
DENNY
Echo 01/22/2025: EF 55%, moderate no WMA, stage II diastolic dysfunction, normal RV size and function mild MR, mild TR and PAP 49 mmHg
Plan:
-Patient had elective outpatient peripheral vascular procedure on 01/21/2025 and while in recovery had newly diagnosed A-fib prompting cardiology consultation and overnight admission.
-MRI of the RLE indicates osteomyelitis involving the mid shaft and tuft of the first distal phalanx and the head of the second proximal phalanx and second middle phalanx. Podiatry is following and amputation might be recommended.
-Patient had RLE angiogram, GYNECOLOGIST and stenting to the PT and angioplasty alone of the AT and DP on 01/21/2025. Patient is ordered Plavix 75 mg daily
-Patient remains in SR on my review of telemetry 01/23/2025
-Patient had possible paroxysmal atrial tachycardia in the recovery area following his peripheral intervention 01/21/2025 and then spontaneously converted to SR.
-No plans for OAC at this time
-Check 2-week CAM monitor, order placed by me through [facility] and will have monitor applied prior to discharge, arrangements made for ambulatory lunchroom monitor to come from the cardiology office to apply monitor prior to discharge, arrangements made
by cardiology
-Outpatient dose of Toprol XL 12.5 mg daily has been continued
-Patient is not chronically on a statin despite his history of CABG by his choice.
HPI: Patient came to the hospital today for planned peripheral vascular procedure and cardiology is now asked to see postprocedure for newly diagnosed paroxysmal atrial fibrillation. 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
the [facility] system up in [place]. Patient is currently living at [facility] for rehab and follows with vascular surgery as an outpatient, he was seen in their office on 01/16/2025 with concern for limb threatening ischemia with
concurrent nonhealing RLE wounds and possible cellulitis prompting initiation of Bactrim for cellulitis and the plans for peripheral angiogram that were performed today. Patient had peripheral angiogram and then RLE vascular interventions as
outlined above. While recovering in the Coroner/Medical Examiner holding area the patient was noted to have the new onset of atrial fibrillation, patient denies a history of atrial fibrillation. Patient is not chronically anticoagulated. There is a history of
traumatic brain injury and a history of falls, but he is currently living at [facility]. Patient has a history of coronary disease with CABG back in 2005.
Progress Note - Rn Acute Dialysis
Subjective
Date of Service: January 23, 2025
He feels well, he is worried he may need total amputation
Objective
Labs:
01/23/25 07:21
Labs
Hgb 8.7 g/dL (13.0-18.0) L 01/23/25 07:21
Hct 27.0 % (39.0-52.0) L 01/23/25 07:21
Plt Count 131 10^3/uL (130-400) 01/23/25 07:21
PT 14.5 Sec (11.4-14.6) 01/21/25 09:42
INR 1.12 01/21/25 09:42
APTT 24.5 Sec (23.4-35.0) 01/21/25 09:42
Sodium 135 mmol/L (135-145) 01/23/25 07:21
Potassium 5.5 mmol/L (3.5-5.1) H 01/23/25 07:21
BUN 27 mg/dl (9-20) H 01/23/25 07:21
Creatinine 1.3 mg/dL (0.7-1.3) 01/23/25 07:21
Glucose 99 mg/dl (70-99) 01/23/25 07:21
Vital Signs and I&O:
Vital Signs
Temp Pulse Resp BP Pulse Ox
98.7 F 55 16 120/51 100
01/23/25 07:00 01/23/25 08:58 01/23/25 07:00 01/23/25 08:58 01/23/25 07:00
Vital Signs
Temp Pulse Resp BP Pulse Ox
98.7 F 55 16 120/51 100
01/23/25 07:00 01/23/25 08:58 01/23/25 07:00 01/23/25 08:58 01/23/25 07:00
Intake & Output
01/21/25 01/22/25 01/23/25 01/24/25
06:59 06:59 06:59 06:59
Intake Total 1410 / 1410 1800 / 1800
Output Total 1250 / 1250
Balance 160 / 160 1800 / 1800
Physical Exam
Physical Exam
GEN: NAD, AAO x 3
LUNGS: RA. Clear anterolaterally without wheeze
CV: SR on telemetry.
EXT: + trace B/L LE edema
NEURO: Gross non-focal
SKIN: No rash
[2025-01-23 12:22] LABS: Glucose - Point of Care 121 mg/dl (70-99)
--- NOTE | 2025-01-23 13:17 | W.PN.POD ---
Today's Communication
Today's Communication
Right digital wounds
Assessment / Plan
-
Assessment/Plan:
Right 2nd toe eschar - unstageable
Right hallux stable hyperkeratosis/pre ulcerative lesion
Chronic hammertoe deformities
Pes Cavus
Type 2 Diabetes Mellitus
PAD
Neuropathy
We discussed the x-ray findings at length. MRI pending. I believe that the changes on X-ray correlates with his hammertoe deformities and repetitive mechanical pressures/bone remodeling over the years. He may have chronic osteo secondary to history
of intermittent open wounds. He declines any sort of debridement of the eschar today. I am recommending Santyl/DSD and a toe crest to offload the second toe.
I recommend weight bearing as tolerated in a surgical shoe and outpatient follow up. Discussed the possibility of amputations if MRI is positive for osteomyelitis.
Subjective
Chief Complaint
Right foot wounds
Subjective
Patient sitting up with no complaints
Objective
Temp Pulse Resp BP Pulse Ox
98.1 F 65 16 167/64 100
01/23/25 11:00 01/23/25 11:00 01/23/25 11:00 01/23/25 11:00 01/23/25 11:00
01/23/25 07:21
Vital Signs and Lab results were reviewed.
Physical Exam
Physical Exam
Right foot is warm and perfused. CFT WNL, contracted lesser digits and cavus foot deformity. Healed right partial 3rd toe amputation, The right 2nd digit is contracted at the DIPJ and there is a dry eschar on the distal tip of the toe. No fluid
expressed, no infection. Does not probe to bone. It measures approximately 0.5 cm in diameter, The hallux is also contracted and there is a 0.2 x 0.3cm area of dried hyperkeratosis, it does not probe to bone, there is no open wound. The toe
appears stable and non infected. Left foot with some digital abrasions/stable eschars, no wounds or areas of ischemia or infection.
X-ray: Suspect osteomyelitis involving the tuft of the first distal phalanx.
--- NOTE | 2025-01-23 13:59 | W.PN.ID1 ---
Date of Service
Date of Service: January 23, 2025
Today's Communication
Await surgical plan.
Assessment / Plan
# R first and second toe osteo
# Chronic nonhealing wound R first and 2nd toe ned
# PAD s/p endovascular procedure 01/21
# post-op pAfib
# DM2
# CAD
- If MRI + osteo R first and second digits.
- Await podiatry plant.
- Can hold on starting IV abx at this time.
# Conditions present on admission:
DM2
CAD s/p CABG
Hypertension
Dyslipidemia
Depression
PAD s/p RLE angiogram and SERVICENOW ADMINISTRATOR and stent to the PT and angioplasty to the AT and DP 01/21/2025
Sleep apnea
History of TBI
Hammertoes
R 2nd toe distal tuft amputation
R 3rd Toe partial amputation
Chief Complaint
-: Other (osteo)
Subjective / Review of Systems
No complaints.
Vital Signs / Physical Exam
Vital Signs
Vital Signs
Temp Pulse Resp BP Pulse Ox
98.1 F 65 16 167/64 100
01/23/25 11:00 01/23/25 11:00 01/23/25 11:00 01/23/25 11:00 01/23/25 11:00
Physical Exam
Constitutional: No Acute Distress and Comfortable
Cardiovascular: Regular Rate and S1/S2
Pulmonary: Clear
Gastrointestinal: Soft, Non Tender, Non Distended and Normal Bowel Sounds
Extremities: Negative Edema
Neurological: AO x 3
Objective Data
Lab Data
Lab Results
01/23/25 07:21
PT 14.5 Sec (11.4-14.6) 01/21/25 09:42
INR 1.12 01/21/25 09:42
APTT 24.5 Sec (23.4-35.0) 01/21/25 09:42
Estimated Creat Clear 45 ml/min 01/23/25 07:21
Most recent labs reviewed.
Micro Results:
01/22/25 16:33 Nasal Screen MRSA (PCR) - Final
Nose MRSA not detected - performed by PCR methodology.
01/23/25 MRI RLE: Osteomyelitis involving the mid shaft and tuft of the first distal phalanx as well as the head of the second proximal phalanx and second middle phalanx.
01/22/25 R Foot XRAY: Suspect osteomyelitis involving the tuft of the first distal phalanx. Artifact versus diminished attenuation at the second, third, and fourth metatarsophalangeal joints without joint space narrowing. Possibly related to
technical factors. Osseous demineralization may be seen with inflammatory arthropathy, or related to osteomyelitis and/or septic arthritis.
Care Review
Plan reviewed with: Physician (Dr. Hoskins)
[2025-01-23 14:03] LABS: Blood Urea Nitrogen 26 mg/dl (9-20); Calcium 8.6 mg/dl (8.4-10.2); Carbon Dioxide 27 mmol/L (22-30); Chloride 101 mmol/L (98-107); Estimated Creatinine Clearance 49 ml/min; Glucose 106 mg/dl (70-99); Potassium 5.1 mmol/L (3.5-5.1); Sodium 132 mmol/L (135-145); eGFR > 60.00
--- NOTE | 2025-01-23 15:47 | CM ---
chart reviewed; NO skilled PT needed
Plan: Return to [facility] when medically stable
[2025-01-23 16:11] VITALS: BP 125/52
[2025-01-23 16:50] LABS: Glucose - Point of Care 224 mg/dl (70-99)
[2025-01-23] MEDS: NOVOLOG FLEXPEN-MODERATE RESISTANCE 3 UNITS SC (17:12)
[2025-01-23 19:45] VITALS: BP 133/53
[2025-01-23] MEDS: SENOKOT 8.6 MG PO (21:13)
[2025-01-23] MEDS: FLOMAX 0.4 MG PO (21:13)
[2025-01-23] MEDS: ABILIFY 5 MG PO (21:13)
[2025-01-23] MEDS: REMERON 30 MG PO (21:13)
[2025-01-23 21:16] LABS: Glucose - Point of Care 131 mg/dl (70-99)
[2025-01-23] MEDS: LANTUS 0.18 UNITS SC (21:18)
[2025-01-23 23:27] VITALS: BP 139/47
[2025-01-24 03:15] VITALS: BP 98/66
[2025-01-24 07:39] VITALS: BP 146/50
--- NOTE | 2025-01-24 07:51 | W.PN.VS ---
Today's Communication / Plan
-
Below plan reviewed with attending.
Assessment/Plan
-
Postop day 3
1. Intravascular lithotripsy to right posterior tibial artery (2.5 mm x 80 mm E8)
2. Balloon angioplasty to right posterior tibial artery (3 mm x 220 mm)
3. Balloon angioplasty to right dorsalis pedis artery (1.5 mm and 2 mm angioplasty balloons)
4. Intravascular lithotripsy to right popliteal artery (6 mm x 80 mm E8)
5. Drug-coated balloon angioplasty to right popliteal artery (6 mm x 100 mm Lutonix)
6. Balloon angioplasty and stenting of right popliteal artery (6 mm x 120 mm LifeStent)
7. Diagnostic aortobiiliac arteriogram
8. Diagnostic right lower extremity arteriogram
9. Ultrasound-guided percutaneous access to the left common femoral artery
Plan:
MRI of right foot positive for Osteomyelitis involving the mid shaft and tuft of the first distal phalanx as well as the head of the second proximal phalanx and second middle phalanx.
Will reach out to podiatry as patient is agreeable to right foot digit amputations this admission, NPO in case they can take him to OR today
Cardiology following do not recommend anticoagulation suspect atrial tachycardia, will be set up for outpatient monitor
Infectious disease consulted, appreciate recommendations
Subjective Data
-
Date of Service: January 24, 2025
Patient seen and examined at bedside, offers no complaints. He has thought over results of MRI and wishes to proceed with amputation of infected foot digits.
Objective Data
-
Vital Signs
Temp Pulse Resp BP Pulse Ox
97.7 F 62 18 146/50 95
01/24/25 07:39 01/24/25 07:39 01/24/25 07:39 01/24/25 07:39 01/24/25 07:39
Intake and Output
01/23/25 01/24/25 01/25/25
06:59 06:59 06:59
Intake Total 1800 / 1800 1530 / 1530
Balance 1800 / 1800 1530 / 1530
Intake:
Oral fluids 1800 / 1800 1530 / 1530
Other:
Number of approximated MODERATE 2 3
amounts of urine
Calcium 8.6 mg/dl (8.4-10.2) 01/23/25 13:20
Physical Exam
-
AAO x 3
No tachypnea on room air
No tachycardia
Abdomen soft
Right foot warm
[2025-01-24 08:07] LABS: Glucose - Point of Care 76 mg/dl (70-99)
[2025-01-24] MEDS: NOVOLOG FLEXPEN-MODERATE RESISTANCE SC ×3 (08:17→17:11)
[2025-01-24] MEDS: ZETIA 10 MG PO (08:18)
[2025-01-24] MEDS: VITAMIN B-6 100 MG PO (08:18)
[2025-01-24] MEDS: PROZAC 80 MG PO (08:18)
[2025-01-24] MEDS: RANEXA EXTENDED RELEASE 500 MG PO ×2 (08:19→20:37)
[2025-01-24] MEDS: WELLBUTRIN XL (24 hour extended release) 150 MG PO (08:19)
[2025-01-24] MEDS: PLAVIX 75 MG PO (08:19)
[2025-01-24] MEDS: DEPAKOTE (12 HR RELEASE) 750 MG PO ×2 (08:19→20:37)
[2025-01-24] MEDS: PEPCID 20 MG PO (08:19)
[2025-01-24] MEDS: TOPROL XL 12.5 MG PO (08:19)
[2025-01-24] MEDS: SINGULAIR 10 MG PO (08:19)
[2025-01-24] MEDS: FOLVITE 1 MG PO (08:19)
[2025-01-24] MEDS: BACTRIM DS 800 MG/160 MG 1 TABLET PO (08:19)
[2025-01-24] MEDS: SANTYL OINTMENT 1 APPLIC TOPICAL (08:19)
[2025-01-24] MEDS: PROSCAR 5 MG PO (08:19)
[2025-01-24 09:12] LABS: Hematocrit 26.6 % (39.0-52.0); Hemoglobin 8.9 g/dL (13.0-18.0); Mean Corp Hgb Conc. 33.5 g/dL (33.0-37.0); Mean Corpuscular Volume 95.3 fL (80.0-94.0); Platelet Count 159 10^3/uL (130-400); Red Cell Dist. Width 14.8 % (11.5-14.5)
[2025-01-24 09:33] LABS: Blood Urea Nitrogen 22 mg/dl (9-20); Calcium 8.6 mg/dl (8.4-10.2); Carbon Dioxide 24 mmol/L (22-30); Chloride 105 mmol/L (98-107); Estimated Creatinine Clearance 49 ml/min; Glucose 70 mg/dl (70-99); Potassium 4.6 mmol/L (3.5-5.1); Sodium 135 mmol/L (135-145); eGFR > 60.00
--- NOTE | 2025-01-24 10:58 | W.PN.ID1 ---
Date of Service
Date of Service: January 24, 2025
Today's Communication
-OR amputation tomorrow to achieve surgical cure
- Replace Bactrim with cephalexin 500mg po qid through 7days post-op.
Assessment / Plan
# R first and second toe osteo
# Chronic nonhealing wound R first and 2nd toe ned
# PAD s/p endovascular procedure 01/21
# post-op pAfib
# DM2
# CAD
- MRI + osteo R first and second digits.
- OR amputation tomorrow to achieve surgical cure
- Replace Bactrim with cephalexin 500mg po qid through 7days post-op.
# Conditions present on admission:
DM2
CAD s/p CABG
Hypertension
Dyslipidemia
Depression
PAD s/p RLE angiogram and CORPORATE HUMAN RESOURCES MANAGER and stent to the PT and angioplasty to the AT and DP 01/21/2025
Sleep apnea
History of TBI
Hammertoes
R 2nd toe distal tuft amputation
R 3rd Toe partial amputation
Chief Complaint
-: Other (osteo)
Subjective / Review of Systems
Surgery tomorrow.
Vital Signs / Physical Exam
Vital Signs
Vital Signs
Temp Pulse Resp BP Pulse Ox
97.7 F 62 18 146/50 95
01/24/25 07:39 01/24/25 08:19 01/24/25 07:39 01/24/25 08:19 01/24/25 07:39
Physical Exam
Constitutional: No Acute Distress and Comfortable
Cardiovascular: Regular Rate and S1/S2
Pulmonary: Clear
Gastrointestinal: Soft, Non Tender, Non Distended and Normal Bowel Sounds
Extremities: Negative Edema
Neurological: AO x 3
Objective Data
Lab Data
Lab Results
01/24/25 07:27
01/24/25 07:27
PT 14.5 Sec (11.4-14.6) 01/21/25 09:42
INR 1.12 01/21/25 09:42
APTT 24.5 Sec (23.4-35.0) 01/21/25 09:42
Estimated Creat Clear 49 ml/min 01/24/25 07:27
Most recent labs reviewed.
Micro Results:
01/22/25 16:33 Nasal Screen MRSA (PCR) - Final
Nose MRSA not detected - performed by PCR methodology.
01/23/25 MRI RLE: Osteomyelitis involving the mid shaft and tuft of the first distal phalanx as well as the head of the second proximal phalanx and second middle phalanx.
01/22/25 R Foot XRAY: Suspect osteomyelitis involving the tuft of the first distal phalanx. Artifact versus diminished attenuation at the second, third, and fourth metatarsophalangeal joints without joint space narrowing. Possibly related to
technical factors. Osseous demineralization may be seen with inflammatory arthropathy, or related to osteomyelitis and/or septic arthritis.
[2025-01-24 11:19] LABS: Glucose - Point of Care 112 mg/dl (70-99)
[2025-01-24 11:38] VITALS: BP 113/49
[2025-01-24] MEDS: KEFLEX 500 MG PO ×3 (12:00→22:46)
--- NOTE | 2025-01-24 12:03 | W.PN.POD ---
Today's Communication
Today's Communication
osteomyelitis right 1st and 2nd digits
Assessment / Plan
-
Assessment/Plan:
Osteomyelitis right first and second digits
Right hallux and second toe pre ulcerative lesions/eschar
Chronic hammertoe deformities
Pes Cavus
Type 2 Diabetes Mellitus
PAD
Neuropathy
We discussed the MRI findings at length. I am recommending amputation of the the right hallux and second toe for surgical cure. Patient is agreeable. Surgical consent is signed, reviewed and discussed at length. All risk,s benefits and
complications of surgery are discussed. All questions answered. He wishes to proceed with surgery tomorrow. NPO after midnight.
Subjective
Chief Complaint
Osteomyelitis right first and second digits
Subjective
Patient awake and conversational, no complaints
Objective
Temp Pulse Resp BP Pulse Ox
98.0 F 48 18 113/49 100
01/24/25 11:38 01/24/25 11:38 01/24/25 11:38 01/24/25 11:38 01/24/25 11:38
01/24/25 07:27
01/24/25 07:27
Vital Signs and Lab results were reviewed.
Physical Exam
Physical Exam
Right foot is warm and perfused. CFT WNL, contracted lesser digits and cavus foot deformity. Healed right partial 3rd toe amputation, The right 2nd digit is contracted at the DIPJ and there is a dry eschar on the distal tip of the toe. Toe is
chronically discolored. No fluid expressed, no infection. Does not probe to bone. It measures approximately 0.5 cm in diameter, The hallux is also contracted and there is a 0.2 x 0.3cm area of dried hyperkeratosis, it does not probe to bone, there
is no open wound. The toe appears stable and non infected. Left foot with some digital abrasions/stable eschars, no wounds or areas of ischemia or infection.
X-ray: Suspect osteomyelitis involving the tuft of the first distal phalanx.
MRI IMPRESSION: Osteomyelitis involving the mid shaft and tuft of the first distal phalanx as well as the head of the second proximal phalanx and second middle phalanx.
[2025-01-24] MEDS: LOW STRENGTH ASPIRIN 81 MG PO (13:10)
[2025-01-24] MEDS: HEPARIN 5000 UNITS SC ×2 (15:00→23:01)
[2025-01-24 15:08] LABS: Glucose - Point of Care 138 mg/dl (70-99)
[2025-01-24 15:21] VITALS: BP 120/47
[2025-01-24 17:05] LABS: Glucose - Point of Care 137 mg/dl (70-99)
[2025-01-24 19:00] VITALS: BP 115/49
--- NOTE | 2025-01-24 19:43 | PTCARENOTE ---
This RN communicated with district traffic chief, patient not going to OR until 1600 or later tomorrow. Per district traffic chief, hold KIM rosa, patient okay to eat early breakfast and take AM meds tomorrow and then strict NPO after 0800 for OR in afternoon.
Verbal order taken for diet order and strict NPO after 0800. This RN communicated above with fast food shift supervisor RN.
[2025-01-24 21:36] LABS: Glucose - Point of Care 231 mg/dl (70-99)
[2025-01-24] MEDS: LANTUS SC (22:31)
[2025-01-24] MEDS: REMERON 30 MG PO (22:45)
[2025-01-24] MEDS: FLOMAX 0.4 MG PO (22:46)
[2025-01-24] MEDS: ABILIFY 5 MG PO (22:46)
[2025-01-24] MEDS: LANTUS 0.09 UNITS SC (22:46)
[2025-01-24] MEDS: SENOKOT 8.6 MG PO (22:46)
[2025-01-24 23:00] VITALS: BP 132/54
[2025-01-25] VITALS (13 sets, daily range): BP systolic 102–160; BP diastolic 34–90
--- NOTE | 2025-01-25 06:35 | PTCARENOTE ---
Patient stated ' unable to place breakfast order ' as the current order order is NPO. Confirmed with dietary. Diet order changed to so patient can place breakfast order. Will place NPO order after patient receives his breakfast. Dayshift
made aware.
[2025-01-25 06:38] LABS: Glucose - Point of Care 81 mg/dl (70-99)
[2025-01-25 07:44] LABS: Hematocrit 29.2 % (39.0-52.0); Hemoglobin 9.6 g/dL (13.0-18.0); Mean Corp Hgb Conc. 32.9 g/dL (33.0-37.0); Mean Corpuscular Volume 96.4 fL (80.0-94.0); Platelet Count 156 10^3/uL (130-400); Red Cell Dist. Width 14.8 % (11.5-14.5)
[2025-01-25 08:02] LABS: Glucose - Point of Care 130 mg/dl (70-99)
[2025-01-25 08:28] LABS: Blood Urea Nitrogen 22 mg/dl (9-20); Calcium 8.6 mg/dl (8.4-10.2); Carbon Dioxide 25 mmol/L (22-30); Chloride 103 mmol/L (98-107); Estimated Creatinine Clearance 45 ml/min; Glucose 123 mg/dl (70-99); Potassium 4.5 mmol/L (3.5-5.1); Sodium 134 mmol/L (135-145); eGFR 56.93
[2025-01-25] MEDS: HEPARIN 5000 UNITS SC ×3 (08:30→23:08)
[2025-01-25] MEDS: NOVOLOG FLEXPEN-MODERATE RESISTANCE SC ×2 (08:31→17:55)
[2025-01-25] MEDS: PROSCAR PO (08:32)
[2025-01-25] MEDS: LOW STRENGTH ASPIRIN PO (08:32)
[2025-01-25] MEDS: PEPCID PO (08:32)
[2025-01-25] MEDS: PLAVIX PO (08:32)
[2025-01-25] MEDS: SANTYL OINTMENT TOPICAL (08:32)
[2025-01-25] MEDS: FOLVITE PO (08:32)
[2025-01-25] MEDS: PROZAC PO (08:32)
[2025-01-25] MEDS: RANEXA EXTENDED RELEASE PO (08:32)
[2025-01-25] MEDS: KEFLEX PO ×3 (08:32→17:24)
[2025-01-25] MEDS: DEPAKOTE (12 HR RELEASE) PO (08:32)
[2025-01-25] MEDS: TOPROL XL PO (08:33)
[2025-01-25] MEDS: VITAMIN B-6 PO (08:33)
[2025-01-25] MEDS: SINGULAIR PO (08:33)
[2025-01-25] MEDS: WELLBUTRIN XL (24 hour extended release) PO (08:33)
[2025-01-25] MEDS: ZETIA PO (08:33)
--- NOTE | 2025-01-25 08:48 | W.PN.UPDATE ---
Update Note
Progress Note Update
Pt seen at bedside this am sitting out to chair having breakfast. Pt doing well overall. Plans for toe amputations with podiatry today. NPO after breakfast.
[2025-01-25 12:16] LABS: Glucose - Point of Care 205 mg/dl (70-99)
[2025-01-25] MEDS: NOVOLOG FLEXPEN-MODERATE RESISTANCE 3 UNITS SC (12:17)
--- NOTE | 2025-01-25 15:10 | W.PN.ID1 ---
Date of Service
Date of Service: January 25, 2025
Today's Communication
Continue cephelexin.
Assessment / Plan
# R first and second toe osteo
# Chronic nonhealing wound R first and 2nd toe ned
# PAD s/p endovascular procedure 01/21
# post-op pAfib
# DM2
# CAD
- MRI + osteo R first and second digits.
- OR amputation today to achieve surgical cure
- Continue cephalexin 500mg po qid through 02/01/25.
# Conditions present on admission:
DM2
CAD s/p CABG
Hypertension
Dyslipidemia
Depression
PAD s/p RLE angiogram and EDUCATIONAL ADMINISTRATOR and stent to the PT and angioplasty to the AT and DP 01/21/2025
Sleep apnea
History of TBI
Hammertoes
R 2nd toe distal tuft amputation
R 3rd Toe partial amputation
Chief Complaint
-: Other (osteo)
Subjective / Review of Systems
Sugery later today.
Vital Signs / Physical Exam
Vital Signs
Vital Signs
Temp Pulse Resp BP Pulse Ox
98.0 F 50 18 139/54 99
01/25/25 11:19 01/25/25 11:19 01/25/25 11:19 01/25/25 11:19 01/25/25 11:19
Physical Exam
Constitutional: No Acute Distress and Comfortable
Cardiovascular: Regular Rate and S1/S2
Pulmonary: Clear
Gastrointestinal: Soft, Non Tender, Non Distended and Normal Bowel Sounds
Extremities: Negative Edema
Neurological: AO x 3
Objective Data
Lab Data
Lab Results
01/25/25 07:06
01/25/25 07:06
PT 14.5 Sec (11.4-14.6) 01/21/25 09:42
INR 1.12 01/21/25 09:42
APTT 24.5 Sec (23.4-35.0) 01/21/25 09:42
Estimated Creat Clear 45 ml/min 01/25/25 07:06
Most recent labs reviewed.
Micro Results:
01/22/25 16:33 Nasal Screen MRSA (PCR) - Final
Nose MRSA not detected - performed by PCR methodology.
01/23/25 MRI RLE: Osteomyelitis involving the mid shaft and tuft of the first distal phalanx as well as the head of the second proximal phalanx and second middle phalanx.
01/22/25 R Foot XRAY: Suspect osteomyelitis involving the tuft of the first distal phalanx. Artifact versus diminished attenuation at the second, third, and fourth metatarsophalangeal joints without joint space narrowing. Possibly related to
technical factors. Osseous demineralization may be seen with inflammatory arthropathy, or related to osteomyelitis and/or septic arthritis.
--- NOTE | 2025-01-25 16:46 | CM ---
Plan for amputation of the the right hallux and second toe. Discharge POC: Will return to [facility] for resumption of LTC. Possibly will need SNF at [facility] after therapy eval.
[2025-01-25 17:47] LABS: Glucose - Point of Care 87 mg/dl (70-99)
[2025-01-25 19:40] LABS: Glucose - Point of Care 93 mg/dl (70-99)
[2025-01-25] MEDS: DEPAKOTE (12 HR RELEASE) 750 MG PO (21:16)
[2025-01-25] MEDS: REMERON 30 MG PO (21:16)
[2025-01-25] MEDS: KEFLEX 500 MG PO (21:16)
[2025-01-25] MEDS: RANEXA EXTENDED RELEASE 500 MG PO (21:16)
[2025-01-25] MEDS: FLOMAX 0.4 MG PO (21:16)
[2025-01-25] MEDS: ABILIFY 5 MG PO (21:16)
[2025-01-25] MEDS: SENOKOT 8.6 MG PO (21:16)
--- NOTE | 2025-01-25 21:30 | PTCARENOTE ---
Rec'd patient from PACU. No pain. Stable vitals. Right foot Dressing with moderate shadow drainage. POC reviewed with patient.
[2025-01-25 23:07] LABS: Glucose - Point of Care 304 mg/dl (70-99)
[2025-01-25] MEDS: LANTUS 0.18 UNITS SC (23:08)
[2025-01-26 03:08] VITALS: BP 123/57
[2025-01-26 03:23] LABS: Glucose - Point of Care 172 mg/dl (70-99)
[2025-01-26 07:16] LABS: Glucose - Point of Care 62 mg/dl (70-99)
[2025-01-26 07:33] VITALS: BP 102/39
[2025-01-26 07:44] LABS: Glucose - Point of Care 120 mg/dl (70-99)
[2025-01-26] MEDS: NOVOLOG FLEXPEN-MODERATE RESISTANCE SC ×3 (08:10→17:35)
[2025-01-26] MEDS: TOPROL XL 12.5 MG PO (08:11)
[2025-01-26] MEDS: KEFLEX 500 MG PO ×4 (08:11→22:29)
[2025-01-26] MEDS: WELLBUTRIN XL (24 hour extended release) 150 MG PO (08:11)
[2025-01-26] MEDS: SINGULAIR 10 MG PO (08:12)
[2025-01-26] MEDS: FOLVITE 1 MG PO (08:12)
[2025-01-26] MEDS: PROZAC 80 MG PO (08:12)
[2025-01-26] MEDS: LOW STRENGTH ASPIRIN 81 MG PO (08:12)
[2025-01-26] MEDS: PROSCAR 5 MG PO (08:12)
[2025-01-26] MEDS: RANEXA EXTENDED RELEASE 500 MG PO ×2 (08:12→20:15)
[2025-01-26] MEDS: ZETIA 10 MG PO (08:13)
[2025-01-26] MEDS: DEPAKOTE (12 HR RELEASE) 750 MG PO ×2 (08:13→20:15)
[2025-01-26] MEDS: VITAMIN B-6 100 MG PO (08:13)
[2025-01-26] MEDS: PEPCID 20 MG PO (08:13)
[2025-01-26] MEDS: PLAVIX 75 MG PO (08:13)
[2025-01-26] MEDS: HEPARIN 5000 UNITS SC ×3 (08:14→23:37)
[2025-01-26] MEDS: SANTYL OINTMENT 1 APPLIC TOPICAL (08:15)
[2025-01-26] MEDS: ROXICODONE 5 MG PO (09:07)
[2025-01-26 09:47] LABS: Glucose - Point of Care 322 mg/dl (70-99)
--- NOTE | 2025-01-26 10:40 | W.PN.ID1 ---
Date of Service
Date of Service: January 26, 2025
Today's Communication
Continue cephalexin 500mg po qid through 02/01/25.
Assessment / Plan
# R first and second toe osteo
# Chronic nonhealing wound R first and 2nd toe ned
# PAD s/p endovascular procedure 01/21
# post-op pAfib
# DM2
# CAD
- MRI + osteo R first and second digits.
- 01/25 s/p OR amputation R 2nd digit, partial amp of R hallux.
OR cx and path pending.
- Suspect surgical cure.
- Continue cephalexin 500mg po qid through 02/01/25.
# Conditions present on admission:
DM2
CAD s/p CABG
Hypertension
Dyslipidemia
Depression
PAD s/p RLE angiogram and SCRIPT EDITOR and stent to the PT and angioplasty to the AT and DP 01/21/2025
Sleep apnea
History of TBI
Hammertoes
R 2nd toe distal tuft amputation
R 3rd Toe partial amputation
Chief Complaint
-: Other (osteo)
Subjective / Review of Systems
No new complaints.
Vital Signs / Physical Exam
Vital Signs
Vital Signs
Temp Pulse Resp BP Pulse Ox
97.6 F 57 18 102/39 97
01/26/25 07:33 01/26/25 08:11 01/26/25 07:33 01/26/25 08:11 01/26/25 08:23
Physical Exam
Constitutional: No Acute Distress and Comfortable
Cardiovascular: Regular Rate and S1/S2
Pulmonary: Clear
Gastrointestinal: Soft, Non Tender, Non Distended and Normal Bowel Sounds
Extremities: Negative Edema
Wound: Other (Right foot dressing dry)
Neurological: AO x 3
Objective Data
Lab Data
Lab Results
01/25/25 07:06
01/25/25 07:06
PT 14.5 Sec (11.4-14.6) 01/21/25 09:42
INR 1.12 01/21/25 09:42
APTT 24.5 Sec (23.4-35.0) 01/21/25 09:42
Estimated Creat Clear 45 ml/min 01/25/25 07:06
Most recent labs reviewed.
Micro Results:
01/25/25 18:52 Tissue Culture - Pending
Bone Gram Stain - Pending
01/25/25 19:10 Wound Culture - Pending
Toe Gram Stain - Pending
01/25/25 19:07 Anaerobic Culture - Pending
Toe
01/25/25 18:52 Tissue Culture - Pending
Toe Gram Stain - Pending
01/22/25 16:33 Nasal Screen MRSA (PCR) - Final
Nose MRSA not detected - performed by PCR methodology.
01/23/25 MRI RLE: Osteomyelitis involving the mid shaft and tuft of the first distal phalanx as well as the head of the second proximal phalanx and second middle phalanx.
01/22/25 R Foot XRAY: Suspect osteomyelitis involving the tuft of the first distal phalanx. Artifact versus diminished attenuation at the second, third, and fourth metatarsophalangeal joints without joint space narrowing. Possibly related to
technical factors. Osseous demineralization may be seen with inflammatory arthropathy, or related to osteomyelitis and/or septic arthritis.
[2025-01-26 11:22] VITALS: BP 110/44
[2025-01-26 11:39] LABS: Glucose - Point of Care 186 mg/dl (70-99)
--- NOTE | 2025-01-26 14:47 | W.PN.UPDATE ---
Update Note
Progress Note Update
Patient seen and examined by me today. No complaints. Keen to return to SNF.
Patient awaiting podiatry to change dressing.
Plan for SNF Tuesday
[2025-01-26 15:14] VITALS: BP 131/54
[2025-01-26 17:38] LABS: Glucose - Point of Care 125 mg/dl (70-99)
[2025-01-26 19:05] VITALS: BP 133/51
[2025-01-26 21:32] LABS: Glucose - Point of Care 251 mg/dl (70-99)
[2025-01-26] MEDS: LANTUS 0.18 UNITS SC (22:28)
[2025-01-26] MEDS: REMERON 30 MG PO (22:29)
[2025-01-26] MEDS: ABILIFY 5 MG PO (22:29)
[2025-01-26] MEDS: FLOMAX 0.4 MG PO (22:29)
[2025-01-26] MEDS: SENOKOT 8.6 MG PO (22:29)
--- NOTE | 2025-01-26 22:39 | PTCARENOTE ---
Patient visibly agitated, stating he was upset that he had not been discharged. Patient became verbally irritated and stated 'can I punch you in the face'-directed toward this RN. No physical contact or attempts made. Patient stated he was making a
joke. Set clear boundaries and educated patient that threats toward staff are not acceptable. Will continue to monitor patient behavior closely and utilize de-escalation techniques as needed. Care ongoing.
[2025-01-26 23:11] VITALS: BP 122/45
[2025-01-27 03:09] VITALS: BP 136/49
[2025-01-27 03:10] LABS: Glucose - Point of Care 120 mg/dl (70-99)
[2025-01-27 07:26] LABS: Glucose - Point of Care 97 mg/dl (70-99)
[2025-01-27 07:27] VITALS: BP 112/41
--- NOTE | 2025-01-27 08:07 | W.PN.POD ---
Today's Communication
Today's Communication
S/P Right partial first and second digit amputations
Assessment / Plan
-
Assessment/Plan:
S/P Right partial hallux amputation and total second toe amputation secondary to Osteomyelitis -POD #2
Type 2 Diabetes Mellitus
PAD
Neuropathy
Bandages are changed at bedside. He is instructed to keep dressings, clean, dry and intact. He may weightbearing as tolerated in surgical shoe, limit activity. Discharge planning. Follow up with me on 02/08/25 outpatient for suture removal.
Continue cephalexin 500mg po qid through 02/01/25 per ID
Subjective
Chief Complaint
S/P Right partial hallux and total second toe amputations
Subjective
Patient awake and conversational with no complaints of pain
Objective
Temp Pulse Resp BP Pulse Ox
98.4 F 56 16 112/41 97
01/27/25 07:27 01/27/25 07:27 01/27/25 07:27 01/27/25 07:27 01/27/25 07:27
01/25/25 07:06
01/25/25 07:06
Vital Signs and Lab results were reviewed.
Physical Exam
Physical Exam
Right foot bandages intact, no strikethrough. PT pulses palpable, foot is perfused and CFT WNL, partial hallux amputation site and 2nd toe amputation site have sutures intact and well approximated. No actvie drianage, viable edges.
--- NOTE | 2025-01-27 08:11 | W.PN.UPDATE ---
Update Note
Progress Note Update
Vascular surgery progress note:
No clinical change
Dressing down. Amputation incisions clean, dry, intact.
No other complaints
Plan: SNF tomorrow
[2025-01-27] MEDS: NOVOLOG FLEXPEN-MODERATE RESISTANCE SC (09:10)
[2025-01-27] MEDS: DEPAKOTE (12 HR RELEASE) 750 MG PO ×2 (09:11→20:33)
[2025-01-27] MEDS: WELLBUTRIN XL (24 hour extended release) 150 MG PO (09:11)
[2025-01-27] MEDS: PROZAC 80 MG PO (09:11)
[2025-01-27] MEDS: PLAVIX 75 MG PO (09:12)
[2025-01-27] MEDS: LOW STRENGTH ASPIRIN 81 MG PO (09:12)
[2025-01-27] MEDS: RANEXA EXTENDED RELEASE 500 MG PO ×2 (09:12→20:33)
[2025-01-27] MEDS: VITAMIN B-6 100 MG PO (09:12)
[2025-01-27] MEDS: TOPROL XL 12.5 MG PO (09:12)
[2025-01-27] MEDS: SANTYL OINTMENT 1 APPLIC TOPICAL (09:13)
[2025-01-27] MEDS: SINGULAIR 10 MG PO (09:13)
[2025-01-27] MEDS: KEFLEX 500 MG PO ×4 (09:15→23:52)
[2025-01-27] MEDS: ZETIA 10 MG PO (09:15)
[2025-01-27] MEDS: FOLVITE 1 MG PO (09:15)
[2025-01-27] MEDS: PROSCAR 5 MG PO (09:16)
[2025-01-27] MEDS: PEPCID 20 MG PO (09:16)
[2025-01-27] MEDS: HEPARIN 5000 UNITS SC ×3 (09:16→23:51)
[2025-01-27 11:36] VITALS: BP 118/45
[2025-01-27 12:33] LABS: Glucose - Point of Care 242 mg/dl (70-99)
[2025-01-27] MEDS: NOVOLOG FLEXPEN-MODERATE RESISTANCE 3 UNITS SC (12:51)
[2025-01-27 16:00] VITALS: BP 133/55
[2025-01-27 17:05] LABS: Glucose - Point of Care 196 mg/dl (70-99)
[2025-01-27] MEDS: NOVOLOG FLEXPEN-MODERATE RESISTANCE 1 UNITS SC (17:22)
[2025-01-27 19:09] VITALS: BP 136/55
[2025-01-27 21:10] LABS: Glucose - Point of Care 281 mg/dl (70-99)
[2025-01-27 23:11] VITALS: BP 115/48
[2025-01-27] MEDS: LANTUS 0.18 UNITS SC (23:49)
[2025-01-27] MEDS: FLOMAX 0.4 MG PO (23:51)
[2025-01-27] MEDS: REMERON 30 MG PO (23:52)
[2025-01-27] MEDS: ABILIFY 5 MG PO (23:52)
[2025-01-27] MEDS: SENOKOT 8.6 MG PO (23:54)
[2025-01-28] MEDS: ROBITUSSIN DM 5 ML PO (00:31)
[2025-01-28 02:49] VITALS: BP 123/51
[2025-01-28 07:15] VITALS: BP 136/50
[2025-01-28 07:31] LABS: Glucose - Point of Care 105 mg/dl (70-99)
--- NOTE | 2025-01-28 07:44 | W.PN.VS ---
Addendum entered and electronically signed by Lawson Casas MD 01/28/25 14:27:
Seen and examined with BATTERY BUILDER's earlier today. Agree with findings and plan as discussed and noted below.
Original Note:
Today's Communication / Plan
-
Patient seen and examined at bedside with Dr. Lawson Casas, below plan reviewed with attending.
Assessment/Plan
-
Postop day #7
1. Intravascular lithotripsy to right posterior tibial artery (2.5 mm x 80 mm E8)
2. Balloon angioplasty to right posterior tibial artery (3 mm x 220 mm)
3. Balloon angioplasty to right dorsalis pedis artery (1.5 mm and 2 mm angioplasty balloons)
4. Intravascular lithotripsy to right popliteal artery (6 mm x 80 mm E8)
5. Drug-coated balloon angioplasty to right popliteal artery (6 mm x 100 mm Lutonix)
6. Balloon angioplasty and stenting of right popliteal artery (6 mm x 120 mm LifeStent)
7. Diagnostic aortobiiliac arteriogram
8. Diagnostic right lower extremity arteriogram
9. Ultrasound-guided percutaneous access to the left common femoral artery
POD #3 Right partial 1st toe amputation and total 2nd toe amputation, with angle furnaceman Dr. Hoskins
Plan:
Cleared for discharge back to [facility] facility where he resides
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
Podiatry will see in outpatient setting
Subjective Data
-
Date of Service: January 28, 2025
Patient seen examined at bedside, offers no complaints. Reports eagerness for discharge back to [facility] he [facility]. Denies nausea, vomiting, fever, and chills.
Objective Data
-
Vital Signs
Temp Pulse Resp BP Pulse Ox
97.8 F 57 16 123/51 99
01/28/25 02:49 01/28/25 02:49 01/28/25 02:49 01/28/25 02:49 01/28/25 02:49
Intake and Output
01/27/25 01/28/25 01/29/25
06:59 06:59 06:59
Intake Total 670 / 670 1260 / 1260
Output Total 300 / 300
Balance 670 / 670 960 / 960
Intake:
Oral fluids 670 / 670 1260 / 1260
Output:
Urine, Voided 300 / 300
Other:
Number of approximated SMALL 3
amounts of urine
Number of approximated MODERATE 1 4
amounts of urine
Lab Results
01/25/25 07:06
01/25/25 07:06
Calcium 8.6 mg/dl (8.4-10.2) 01/25/25 07:06
Physical Exam
-
AAO x 3
No tachypnea on room air
No tachycardia
Abdomen soft
Right foot warm, podiatry dressing clean, dry, and intact
[2025-01-28] MEDS: NOVOLOG FLEXPEN-MODERATE RESISTANCE SC (09:16)
[2025-01-28] MEDS: WELLBUTRIN XL (24 hour extended release) 150 MG PO (09:19)
[2025-01-28] MEDS: PROZAC 80 MG PO (09:19)
[2025-01-28] MEDS: RANEXA EXTENDED RELEASE 500 MG PO (09:20)
[2025-01-28] MEDS: FOLVITE 1 MG PO (09:20)
[2025-01-28] MEDS: PROSCAR 5 MG PO (09:20)
[2025-01-28] MEDS: LOW STRENGTH ASPIRIN 81 MG PO (09:20)
[2025-01-28] MEDS: DEPAKOTE (12 HR RELEASE) 750 MG PO (09:20)
[2025-01-28] MEDS: TOPROL XL 12.5 MG PO (09:20)
[2025-01-28] MEDS: ZETIA 10 MG PO (09:20)
[2025-01-28] MEDS: VITAMIN B-6 100 MG PO (09:21)
[2025-01-28] MEDS: SANTYL OINTMENT 1 APPLIC TOPICAL (09:21)
[2025-01-28] MEDS: KEFLEX 500 MG PO (09:21)
[2025-01-28] MEDS: PLAVIX 75 MG PO (09:21)
[2025-01-28] MEDS: PEPCID 20 MG PO (09:22)
[2025-01-28] MEDS: SINGULAIR 10 MG PO (09:22)
[2025-01-28] MEDS: HEPARIN 5000 UNITS SC (09:23)
[2025-01-28 11:00] VITALS: BP 114/47
--- NOTE | 2025-01-28 11:29 | CM ---
Addendum entered by Paz Brady 01/28/25 12:38:
CM updated facility that request for van transportation is for 2pm awaiting response.
Original Note:
Patient seen at bedside on [address]. Patient states that he wants to go home to [facility] in the van from the facility. CM reviewed IMM ans signed form placed on chart. Please call report to [phone]/fax [phone]. Patient is for
discharge today. CM updated facility admissions and await time for van transfer. CM will continue to follow for discharge planning needs.
Plan; return to SNF; pending time for van/transfer
--- NOTE | 2025-01-28 12:07 | W.DS.TRANS ---
Addendum entered and electronically signed by OMKAR Fields 02/04/25 12:01:
Patient noted to have preliminary results of MRSA on OR culture, last-minute cancellation of patient going home on cephalexin and instead prescribed doxycycline 100 mg p.o. twice daily for 10 days, confirmed with ID. Discharge instructions
reprinted and review of new antibiotics performed with patient.
Original Note:
DC Summary - Ground Control Approach Technician
-
Discharge Instructions:
Discharge Diagnosis/Procedures Limb threatening ischemia, right lower extremity
[place] artery atherosclerosis with nonhealing
toe ulcerations
Diabetes with peripheral arterial occlusive
disease
Hammer toe, 2nd digit right foot
Right 1st and 2nd digit osteomyelitis
Paroxysmal atrial tachycardia
Procedure on 01/21/2025
1. Intravascular lithotripsy to right posterior
tibial artery (2.5 mm x 80 mm E8)
2. Balloon angioplasty to right posterior
tibial artery (3 mm x 220 mm)
3. Balloon angioplasty to right dorsalis pedis
artery (1.5 mm and 2 mm angioplasty balloons)
4. Intravascular lithotripsy to right popliteal
artery (6 mm x 80 mm E8)
5. Drug-coated balloon angioplasty to right
popliteal artery (6 mm x 100 mm Lutonix)
6. Balloon angioplasty and stenting of right
popliteal artery (6 mm x 120 mm LifeStent)
7. Diagnostic aortobiiliac arteriogram
8. Diagnostic right lower extremity arteriogram
9. Ultrasound-guided percutaneous access to the
left common femoral artery
Procedure on 01/25/2025
Right partial 1st toe amputation and total 2nd
toe amputation.
Diet As tolerated
Activity No strenuous activity
Driving Restrictions Not until seen by your Dr
Bathing Restrictions After dressing removed
Blood Work Your repeat arterial ultrasound is scheduled for
03/01/2025 at 10 AM here at [facility]
Others Tests -A 14-day ambulatory heart monitor ([employer]
monitor) was applied prior to your discharge
from the hospital. The monitor can get wet in
the shower, but avoid direct spray from the
showerhead. At the end of the 14-day monitoring
period the monitor can be removed and then
placed in the postage paid box and placed in any
[employer] mail box for delivery back to the
cardiology office for processing. We will call
you with the results of the monitor.
Wound Care Please follow-up with economist research assistant Dr. Hoskins in
1 week for dressing change, please leave
dressing clean, dry, and intact until follow-up.
Instructions:
Stand-Alone Forms: Vascular Surg Discharge Instr
Changes to Home Medications: Yes
Discharge Medications:
DC Medications w/original date entered in [facility]
acetaminophen 325 mg tablet 650 mg PO Q4H PRN pain,fever 01/17/25
albuterol sulfate 2.5 mg/3 mL (0.083 %) solution for nebulization 2.5 mg inhalation Q6H PRN SOB 01/17/25
aripiprazole 5 mg tablet (Abilify) 5 mg PO HS Antimanic Agent 01/17/25
bisacodyl 10 mg rectal suppository 10 mg NM DAILY PRN constipation 01/17/25
bupropion HCl 150 mg 24 hr tablet, extended release 150 mg PO DAILY Mental Health/Anxiety 01/17/25
divalproex 500 mg tablet,delayed release 750 mg PO BID Seizures 01/17/25
ezetimibe 10 mg tablet 10 mg PO DAILY High Cholesterol 01/17/25
famotidine 20 mg tablet 20 mg PO BID Gastrointestinal Issue 01/17/25
finasteride 5 mg tablet 5 mg PO DAILY BPH 01/17/25
fluoxetine 40 mg capsule 80 mg PO DAILY Mental Health/Anxiety 01/17/25
folic acid 1 mg tablet 1 mg PO DAILY Supplement 01/17/25
glucagon 1 mg/0.2 mL subcutaneous auto-injector 1 mg SC ONCE PRN hypoglycemia 01/17/25
insulin aspart U-100 100 unit/mL subcutaneous solution (Novolog U-100 Insulin aspart) 1 sliding scale dose SC DIRECTED Diabetes 01/17/25
insulin glargine 100 unit/mL subcutaneous solution 18 unit SC HS Diabetes 01/17/25
magnesium hydroxide 400 mg/5 mL oral suspension (Milk of Magnesia) 30 ml PO DAILY PRN constipation 01/17/25
melatonin 5 mg tablet 5 mg PO HS PRN insomnia 01/17/25
metoprolol succinate 25 mg tablet,extended release 24 hr 12.5 mg PO DAILY Blood Pressure 01/17/25
mirtazapine 30 mg tablet (Remeron) 30 mg PO HS Mental Health/Anxiety 01/17/25
montelukast 10 mg tablet 10 mg PO DAILY ASTHMA 01/17/25
nitroglycerin 0.4 mg sublingual tablet 0.4 mg sublingual Q5M PRN CP 01/17/25
pyridoxine (vitamin B6) 100 mg tablet 100 mg PO DAILY Supplement 01/17/25
ranolazine 500 mg tablet,extended release,12 hr 500 mg PO Q12H Antianginal Agent 01/17/25
sennosides 8.6 mg tablet (senna) 8.6 mg PO HS Constipation 01/17/25
sodium phosphates 19 gram-7 gram/118 mL enema (Fleet Enema) 1 ml NM DAILY PRN constipation 01/17/25
tamsulosin 0.4 mg capsule 0.4 mg PO HS Urinary Issue 01/17/25
aspirin 81 mg tablet,delayed release 81 mg PO DAILY Blood Clot Prevention/Tx 01/21/25
cephalexin 500 mg capsule 500 mg PO QID #18 caps 01/28/25
clopidogrel 75 mg tablet 75 mg PO DAILY #90 tabs 01/28/25
Home Medication Changes
Added:
cephalexin 500 mg capsule 500 mg PO QID #18 caps 01/28/25
clopidogrel 75 mg tablet 75 mg PO DAILY #90 tabs 01/28/25
Pending Results: No
[2025-01-28 12:22] LABS: Glucose - Point of Care 229 mg/dl (70-99)
[2025-01-28] MEDS: VIBRAMYCIN 100 MG PO (12:32)
[2025-01-28] MEDS: NOVOLOG FLEXPEN-MODERATE RESISTANCE 3 UNITS SC (12:33)
--- NOTE | 2025-01-28 14:05 | W.PN.ID1 ---
Date of Service
Date of Service: January 28, 2025
Today's Communication
Replace cephalexin with doxycycline 100mg po bid x 10 days.
Assessment / Plan
# R first and second toe osteo
# Chronic nonhealing wound R first and 2nd toe ned
# PAD s/p endovascular procedure 01/21
# post-op pAfib
# DM2
# CAD
- MRI + osteo R first and second digits.
- 01/25 s/p OR amputation R 2nd digit, partial amp of R hallux.
OR cx: prelim MRSA
OR path pending.
- Likely surgical cure.
- Replace cephalexin with doxycycline 100mg po bid x 10 days.
# Conditions present on admission:
DM2
CAD s/p CABG
Hypertension
Dyslipidemia
Depression
PAD s/p RLE angiogram and CLINIC LEAD and stent to the PT and angioplasty to the AT and DP 01/21/2025
Sleep apnea
History of TBI
Hammertoes
R 2nd toe distal tuft amputation
R 3rd Toe partial amputation
Chief Complaint
-: Other (osteo)
Vital Signs / Physical Exam
Vital Signs
Vital Signs
Temp Pulse Resp BP Pulse Ox
98.9 F 50 14 114/47 100
01/28/25 11:00 01/28/25 11:00 01/28/25 11:00 01/28/25 11:00 01/28/25 11:00
Physical Exam
Constitutional: No Acute Distress and Comfortable
Cardiovascular: Regular Rate and S1/S2
Pulmonary: Clear
Gastrointestinal: Soft, Non Tender, Non Distended and Normal Bowel Sounds
Extremities: Negative Edema
Wound: Other (Right foot dressing dry)
Neurological: AO x 3
Objective Data
Lab Data
Lab Results
01/25/25 07:06
01/25/25 07:06
PT 14.5 Sec (11.4-14.6) 01/21/25 09:42
INR 1.12 01/21/25 09:42
APTT 24.5 Sec (23.4-35.0) 01/21/25 09:42
Estimated Creat Clear 45 ml/min 01/25/25 07:06
Most recent labs reviewed.
Micro Results:
01/25/25 18:52 Tissue Culture - Preliminary
Toe Staph aureus MRSA
Diptheroids
Gram Stain - Preliminary
01/25/25 19:07 Anaerobic Culture - Preliminary
Toe Culture pending. Anaerobic cultures are examined after 3
days incubation. Additional information to follow.
01/25/25 19:10 Wound Culture - Preliminary
Toe Gram Stain - Preliminary
01/25/25 18:52 Tissue Culture - Preliminary
Bone Gram Stain - Preliminary
01/22/25 16:33 Nasal Screen MRSA (PCR) - Final
Nose MRSA not detected - performed by PCR methodology.
01/23/25 MRI RLE: Osteomyelitis involving the mid shaft and tuft of the first distal phalanx as well as the head of the second proximal phalanx and second middle phalanx.
01/22/25 R Foot XRAY: Suspect osteomyelitis involving the tuft of the first distal phalanx. Artifact versus diminished attenuation at the second, third, and fourth metatarsophalangeal joints without joint space narrowing. Possibly related to
technical factors. Osseous demineralization may be seen with inflammatory arthropathy, or related to osteomyelitis and/or septic arthritis.
Care Review
Plan reviewed with: Other Provider (OMKAR Perkins)
[2025-01-28 14:30] VITALS: BP 125/48
--- NOTE | 2025-02-04 11:53 | W.DCSUMMARY ---
Discharge Summary
Discharge Data
Date of Admission: 01/21/25
Date of Discharge: 01/28/25
-
Pending Results: Yes
Additional Pending Results:
Preliminary report for OR culture concerning for MRSA, culture finalized on 01/29/2025, regardless patient had amputation which was deemed curative for infection.
Hospital Course
Attending: John Yo III, MD
Consultants: Pulmonary medicine, infectious disease, podiatry, and cardiology
Allergies: Duloxetine, metformin, ofloxacin, quinolones
Procedures:
Intravascular lithotripsy to right posterior tibial artery (2.5 mm x 80 mm E8). Balloon angioplasty to right posterior tibial artery (3 mm x 220 mm). Balloon angioplasty to right dorsalis pedis artery (1.5 mm and 2 mm angioplasty balloons.
Intravascular lithotripsy to right popliteal artery (6 mm x 80 mm E8). Drug-coated balloon angioplasty to right popliteal artery (6 mm x 100 mm Lutonix). Balloon angioplasty and stenting of right popliteal artery (6 mm x 120 mm LifeStent).
Diagnostic aortobiiliac arteriogram. Diagnostic right lower extremity arteriogram. Ultrasound-guided percutaneous access to the left common femoral artery on 01/21/[address] John Yo III
Right partial 1st toe amputation and total 2nd toe amputation on 01/25/[address] Haley Hoskins
History of present illness: The patient is an 74-year-old male with multiple medical conditions including: Depression, heart disease, chronic kidney disease, suicidal ideations, traumatic brain injury, hard of hearing, GERD, anemia, diabetes,
insomnia, hypertension, peripheral arterial disease, and enlarged prostate. Patient presented on 01/21/2025 for scheduled procedure with Dr. John Yo III. Patient had chronic right foot 1st and 2nd digit wounds, prior indicated to our team
that he has not had proper x-rays or wound care workup; additionally, he went into what was suspected to be atrial fibrillation on bedside monitor in recovery room prompting admission.
Hospital Course: Briefly, the patient underwent scheduled right lower extremity angiogram with intervention, see above listed procedure, without complications, and recovered in PACU. While in recovery room patient was noted to have atrial
fibrillation on bedside monitor, and reported no formal workup for wounds at right foot digits prompting admission to hospital. Following recovery phase one and two patient was admitted to telemetry floor with consultation to cardiology and
podiatry. POD #1 (01/22/2025) groin puncture site clean, dry, and intact no evidence of hematoma. Right foot warm with positive Doppler signals. Cardiology recommendation is that patient was in paroxysmal atrial tachycardia, they do not recommend
initiation of oral anticoagulation at this time and instead will initiate outpatient cardiology monitor for continued cardiac follow-up, cardiology signed off. X-ray of right foot concerning for possible osteomyelitis plan to obtain MRI.
Infectious disease consulted, awaiting recommendations pending MRI. Postop day #2 (01/23/2025) Patient continues to do well from a vascular surgical perspective with no evidence of hematoma at puncture site and continued Doppler signal to right
foot. MRI of right foot positive for osteomyelitis at 1st and 2nd digits. Postop day #3 (01/24/2025) given MRI positive for osteomyelitis at right foot 1st and 2nd digits plan is for podiatry to take patient to the OR for amputation. Patient
started on Bactrim with cephalexin by infectious disease. Patient remains afebrile with no leukocytosis. Postop day #4 (01/25/2025) patient underwent right partial first toe amputation and total second toe potation by podiatry, Dr. Hoskins.
Patient tolerated procedure well. POD #4/1 (01/26/2025) vital signs stable, awaiting podiatry to perform postoperative dressing change. Suspect patient will be cleared for discharge on Tuesday for return to alf facility. POD #5/2
(01/27/2025) dressing change performed at bedside by podiatry, instructed to keep dressing clean, dry, and intact and will follow-up in the outpatient setting. POD #6/3 (01/28/2025) OR cultures of amputation with preliminary result positive for
MRSA, antibiotic switched from cephalexin to doxycycline per recommendation of infectious disease. Patient cleared by podiatry and infectious disease for discharge back to alf facility. From a vascular perspective patient cleared for
discharge to alf facility.
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 All instructions were given to the patient in both written and verbal form and the patient expressed understanding.
Discharge Plan
-
Patient Disposition: Care Home/SNF
Discharge Diagnosis/Procedures: Limb threatening ischemia, right lower extremity
[place] artery atherosclerosis with nonhealing toe ulcerations
Diabetes with peripheral arterial occlusive disease
Hammer toe, 2nd digit right foot
Right 1st and 2nd digit osteomyelitis
Paroxysmal atrial tachycardia
Procedure on 01/21/2025
1. Intravascular lithotripsy to right posterior tibial artery (2.5 mm x 80 mm E8)
2. Balloon angioplasty to right posterior tibial artery (3 mm x 220 mm)
3. Balloon angioplasty to right dorsalis pedis artery (1.5 mm and 2 mm angioplasty balloons)
4. Intravascular lithotripsy to right popliteal artery (6 mm x 80 mm E8)
5. Drug-coated balloon angioplasty to right popliteal artery (6 mm x 100 mm Lutonix)
6. Balloon angioplasty and stenting of right popliteal artery (6 mm x 120 mm LifeStent)
7. Diagnostic aortobiiliac arteriogram
8. Diagnostic right lower extremity arteriogram
9. Ultrasound-guided percutaneous access to the left common femoral artery
Procedure on 01/25/2025
Right partial 1st toe amputation and total 2nd toe amputation.
Condition: Good
Diet: As tolerated
Activity: No strenuous activity
Driving Restrictions: Not until seen by your Dr
Bathing Restrictions: After dressing removed
Blood Work: Your repeat arterial ultrasound is scheduled for 03/01/2025 at 10 AM here at [facility]
Others Tests: -A 14-day ambulatory heart monitor (Seat 14A/[employer] monitor) was applied prior to your discharge from the hospital. The monitor can get wet in the shower, but avoid direct spray from the showerhead. At the end of the 14-day monitoring
period the monitor can be removed and then placed in the postage paid box and placed in any [employer]PS mail box for delivery back to the cardiology office for processing. We will call you with the results of the monitor.
Wound Care: Please follow-up with precision lens generator Dr. Hoskins in 1 week for dressing change, please leave dressing clean, dry, and intact until follow-up.
Activity Restrictions/Additional Instructions:
Please wear fore front offloading shoe at right foot in order to ambulate, at all times.
Stand Alone Forms: Vascular Surg Discharge Instr
Referrals:
Haley Hoskins DPM [Active, Podiatry] - in one week
Mackenzie Bazan MD [Active, Cardiology] - 02/13/25 1:20 pm
Referral Note: You have an appointment to see Dr. Bazan's physician clinical trials assistant, Peggy, at the [place] office on 02/13/2025 at 1:20 PM. Your son has requested that you follow-up with Dr. Mackenzie Bazan for local cardiology care and we will
call you with that appointment.
UNKNOWN - PT DOES,NOT KNOW [Family Provider]
Janeth Wright CRNP [Specified Professional Personl, Vascular Surgery] - 03/06/25 9:30 am
Prescriptions:
New
clopidogrel 75 mg Tablet
75 mg PO DAILY Qty: 90 0RF
doxycycline hyclate 100 mg Capsule
100 mg PO Q12 10 Days Qty: 19 0RF
Continued
fluoxetine 40 mg Capsule
80 mg PO DAILY
sennosides [senna] 8.6 mg Tablet
8.6 mg PO HS
acetaminophen 325 mg Tablet
650 mg PO Q4H PRN (Reason: pain,fever)
insulin glargine 100 unit/mL Solution
18 unit SC HS
albuterol sulfate 2.5 mg /3 mL (0.083 %) Solution For Nebulization
2.5 mg INHALATION Q6H PRN (Reason: SOB)
divalproex 500 mg Tablet,Delayed Release (Dr/Ec)
750 mg PO BID
famotidine 20 mg Tablet
20 mg PO BID
magnesium hydroxide [Milk of Magnesia] 400 mg/5 mL Suspension
30 ml PO DAILY PRN (Reason: constipation)
tamsulosin 0.4 mg Capsule
0.4 mg PO HS
insulin aspart U-100 [Novolog U-100 Insulin aspart] 100 unit/mL Solution
1 sliding scale dose SC DIRECTED
Patient Comments:
before meals & bedtime
bisacodyl 10 mg Suppository
10 mg LA DAILY PRN (Reason: constipation)
mirtazapine [Remeron] 30 mg Tablet
30 mg PO HS
Fleet Enema 19-7 gram/118 mL Enema
1 ml LA DAILY PRN (Reason: constipation)
nitroglycerin 0.4 mg Tablet, Sublingual
0.4 mg SUBLINGUAL Q5M PRN (Reason: CP)
folic acid 1 mg Tablet
1 mg PO DAILY
montelukast 10 mg Tablet
10 mg PO DAILY
pyridoxine (vitamin B6) 100 mg Tablet
100 mg PO DAILY
metoprolol succinate 25 mg Tablet Extended Release 24 Hr
12.5 mg PO DAILY
finasteride 5 mg Tablet
5 mg PO DAILY
ezetimibe 10 mg Tablet
10 mg PO DAILY
aripiprazole [Abilify] 5 mg Tablet
5 mg PO HS
bupropion HCl 150 mg Tablet Extended Release 24 Hr
150 mg PO DAILY
ranolazine 500 mg Tablet Extended Release 12 Hr
500 mg PO Q12H
melatonin 5 mg Tablet
5 mg PO HS PRN (Reason: insomnia)
glucagon 1 mg/0.2 mL Auto-Injector
1 mg SC ONCE PRN (Reason: hypoglycemia)
aspirin 81 mg Tablet,Delayed Release (Dr/Ec)
81 mg PO DAILY
Rx Instructions:
pt not sure if it was started at [facility]
Discontinued
sulfamethoxazole-trimethoprim [Bactrim DS] 800-160 mg Tablet
1 tab PO Q12H
Discharge Orders:
Discharge Patient (As Directed); Ordered 01/28/25
Ordered By: Odilia Perkins
Discharge Date and Time
Discharge Date/Time: 01/28/25 15:30
Print Language: [place]
== END 2025-01-28 15:30 | DRG 279 ==
LOC: 2 NORTH 17:57
PROVIDERS: Nurse Practitioner; Nurse Practitioner Gerontology; ADMITTING PHYSICIAN Surgery Vascular Surgery; CONSULT PHYSICIAN Internal Medicine Infectious Disease; CONSULT PHYSICIAN Podiatrist; OTHER PHYSICIAN Internal Medicine Interventional Cardiology
PROC: 04FR3ZZ Fragmentation of Right Posterior Tibial Artery, Percutaneous Approach (ICD-10-PCS; 2025-01-21)
PROC: 047R3ZZ Dilation of Right Posterior Tibial Artery, Percutaneous Approach (ICD-10-PCS; 2025-01-21)
PROC: 047M3D1 Dilation of Right Popliteal Artery with Intraluminal Device, using Drug-Coated Balloon, Percutaneous Approach (ICD-10-PCS; 2025-01-21)
PROC: 04FM3ZZ Fragmentation of Right Popliteal Artery, Percutaneous Approach (ICD-10-PCS; 2025-01-21)
PROC: B41D1ZZ Fluoroscopy of Aorta and Bilateral Lower Extremity Arteries using Low Osmolar Contrast (ICD-10-PCS; 2025-01-21)
PROC: 047V3ZZ Dilation of Right Foot Artery, Percutaneous Approach (ICD-10-PCS; 2025-01-21)
PROC: 0Y6P0Z3 Detachment at Right 1st Toe, Low, Open Approach (ICD-10-PCS; 2025-01-25)
PROC: 0Y6R0Z0 Detachment at Right 2nd Toe, Complete, Open Approach (ICD-10-PCS; 2025-01-25)
DX: E11.51 Type 2 diabetes mellitus with diabetic peripheral angiopathy without gangrene (principal); I47.19 Other supraventricular tachycardia; M86.171 Other acute osteomyelitis, right ankle and foot; L97.511 Non-pressure chronic ulcer of other part of right foot limited to breakdown of skin; I70.235 Atherosclerosis of native arteries of right leg with ulceration of other part of foot; M20.41 Other hammer toe(s) (acquired), right foot; L03.031 Cellulitis of right toe; E78.5 Hyperlipidemia, unspecified; G47.33 Obstructive sleep apnea (adult) (pediatric); I25.10 Atherosclerotic heart disease of native coronary artery without angina pectoris; E11.69 Type 2 diabetes mellitus with other specified complication; I48.0 Paroxysmal atrial fibrillation; D64.9 Anemia, unspecified; R29.6 Repeated falls; F32.A Depression, unspecified; Z79.4 Long term (current) use of insulin; E11.40 Type 2 diabetes mellitus with diabetic neuropathy, unspecified; Z79.82 Long term (current) use of aspirin; E11.22 Type 2 diabetes mellitus with diabetic chronic kidney disease; I12.9 Hypertensive chronic kidney disease with stage 1 through stage 4 chronic kidney disease, or unspecified chronic kidney disease; N18.9 Chronic kidney disease, unspecified; E11.621 Type 2 diabetes mellitus with foot ulcer; G47.00 Insomnia, unspecified; K21.9 Gastro-esophageal reflux disease without esophagitis; N40.0 Benign prostatic hyperplasia without lower urinary tract symptoms; Z79.899 Other long term (current) drug therapy; Z87.820 Personal history of traumatic brain injury; Z87.891 Personal history of nicotine dependence; Z95.1 Presence of aortocoronary bypass graft
CPT/HCPCS: 73620; 73630; 73720; 75625; 75710; 80048; 82947; 82962; 84443; 85027; 85610; 85730; 87070; 87075; 87076; 87077; 87147; 87176; 87186; 87205; 87641; 88304; 88305; 88311; 93005; 93306; A9575; C1725; C1769; C1876; C1894; C2623; C9765; C9772; Q9967